=== PATIENT | male | born 1970 | race Caucasian/White ===

== ENCOUNTER 2019-09-19 06:07 | Inpatient (IN) | payer OTHER ==
[~2019-09-19 06:07] MED LIST: ceFAZolin 1,000 MG in SODIUM CHLORIDE 0.9% IRRIGATIO 1,000 ML IRRIGATION ONE; ceFAZolin 2,000 MG in SODIUM CHLORIDE 0.9% 30 ML IVPB ONE; ceFAZolin 3 GM in SODIUM CHLORIDE 0.9% 30 ML IVPB ONE
[2019-09-19] MEDS ORDERED: ASPIRIN 325 MG TAB PO STA (06:28)
[2019-09-19] MEDS ORDERED: SODIUM CHLORIDE 0.9% 1,000 ML in EMPTY BAG 1 BAG IV ONE (06:28)
[2019-09-19] MEDS ORDERED: ALPRAZolam 0.5 MG TAB PO PRN (06:28)
[2019-09-19] MEDS ORDERED: ATORVASTATIN 80 MG TAB PO STA (06:28)
[2019-09-19] MEDS ORDERED: ALPRAZolam 0.25 MG TAB PO PRN (06:28)
[2019-09-19] MEDS ORDERED: NITROGLYCERIN SL TABS 0.4 MG TAB SUBLINGUAL PRN (06:28)
[2019-09-19 06:53] LABS: Basophils % (A) 0 %; Eosinophils # (A) 0.1 k/uL (0-0.7); Eosinophils % (A) 2 %; HCT 40.9 % (39.0-53.0); HGB 13.7 gm/dL (13.0-17.5); Lymphocytes # (A) 1.2 k/uL (1.0-4.8); Lymphocytes % (A) 21 %; MCH 29.8 pg (25.0-35.0); MCHC 33.5 g/dL (31.0-37.0); Mean Platelet Volume 7.4; Monocytes # (A) 1.1 k/uL (0-1.0); Monocytes % (A) 19 %; Neutrophils # (A) 3.2 k/uL (1.3-7.7); Neutrophils % (A) 56 %; Platelet Count 341 k/uL (150-450); RBC 4.59 m/uL (4.30-5.90); WBC 5.8 k/uL (3.8-10.6)
[2019-09-19 07:00] LABS: African American GFR (CKD) >90 (>60 ml/min/1.73 sqM); Anion Gap 12 mmol/L; Blood Urea Nitrogen 16 mg/dL (9-20); Calcium 9.2 mg/dL (8.4-10.2); Carbon Dioxide 25 mmol/L (22-30); Chloride 102 mmol/L (98-107); Glucose 98 mg/dL (74-99); Non-African American GFR(CKD) >90 (>60 ml/min/1.73 sqM); Potassium 4.3 mmol/L (3.5-5.1); Sodium 139 mmol/L (137-145)
[2019-09-19] MEDS ORDERED: LIDOCAINE 1% INJ 10MG/ML (20 ML MDV) ONE ×3 (07:22→09:59)
[2019-09-19] MEDS ORDERED: fentaNYL (PF) 50 MCG/ML 2 ML AMP ONE (07:22)
[2019-09-19] MEDS ORDERED: fentaNYL (PF) 50 MCG/ML 2 ML AMP IV ONE (07:38)
[2019-09-19] MEDS ORDERED: MIDAZOLAM 2 MG/2 ML VIAL IV ONE (07:39)
[2019-09-19] MEDS ORDERED: BIVALIRUDIN BOLUS 250 MG/50 ML IV ONE (07:39)
[2019-09-19] MEDS ORDERED: LIDOCAINE 1% INJ 10MG/ML (20 ML MDV) SQ ONE (07:40)
[2019-09-19] MEDS ORDERED: PRASUGREL 10 MG TAB ONE (07:58)
[2019-09-19] MEDS ORDERED: BIVALIRUDIN 250 MG in SODIUM CHLORIDE 0.9% 50 ML IV ONE (08:00)
[2019-09-19] MEDS ORDERED: PRASUGREL 10 MG TAB PO ONE (08:01)
[2019-09-19] MEDS ORDERED: IOPAMIDOL-370 125ML BTL INJ ONE (08:18)
[2019-09-19] MEDS ORDERED: SODIUM CHLORIDE 0.9% IV ONE ×4 (08:35)
[2019-09-19] MEDS ORDERED: BIVALIRUDIN IV ONE ×4 (08:35)
[2019-09-19] MEDS ORDERED: IOPAMIDOL-370 100ML BTL INJ ONE ×3 (08:48→10:02)
[2019-09-19] MEDS ORDERED: NITROGLYCERIN-D5W PMX 50 MG in DEXTROSE/WATER 1 250ML.BAG IV ONE (09:43)
--- NOTE | 2019-09-19 09:45 | LTR ---
DATE OF SERVICE: 09/19/2019 RE: Christian Waterman Dear Dr. Hernandez; I performed cardiac catheterization on Christian Waterman, a detailed catheterization note is in place for your records. In brief, the cardiac catheterization revealed severe stenosis involving the LAD and patient will undergo angioplasty with stent placement of the same. Thank you for giving us the privilege to participate with this pleasant gentleman. Sincerely, MD JEB Michel / MICKEY: [id number] /
--- NOTE | 2019-09-19 09:45 | CC ---
CARDIAC CATHETERIZATION REPORT INDICATION: Unstable angina. PROCEDURE NOTE: After obtaining AN informed consent, left heart catheterization and coronary angiogram were performed via the right femoral artery using standard Laquita catheters. Patient tolerated the procedure well without any obvious immediate complications. Patient received moderate conscious sedation. Total sedation time was 16 minutes. FINDINGS: 1. HEMODYNAMICS: Left ventricular end-diastolic pressure is 12 mm. There is no significant gradient across the aortic valve. 2. LEFT VENTRICULOGRAM: Left ventriculogram was not performed. 3. ANGIOGRAPHIC DATA: LEFT MAIN CORONARY: Left main coronary artery is a normal-sized vessel and is free of stenosis. Divides into left anterior descending coronary artery and circumflex coronary artery. Circumflex coronary artery is a nondominant vessel and is free of significant disease. LAD is a large vessel that wraps around the apex of the heart, shows a focal 80%-90% stenosis in the midportion with the diagonal branch showing another 80% stenosis. Right coronary artery is a large dominant vessel that shows a 30%-40% atherosclerotic plaque in the proximal part. CONCLUSIONS: An 80% to 90% stenosis involving mid LAD that also involves the ostial part of the diagonal branch with an 80% to 90% stenosis involving the diagonal branch. PLAN: Patient will undergo angioplasty with stent placement of LAD and I discussed risks and benefits. He understands. MMODL / IJN: [id number] /
[2019-09-19] MEDS ORDERED: HEPARIN SODIUM 1,000 UN/ML (10ML VL) ONE (09:46)
[2019-09-19] MEDS ORDERED: PHENYLEPHRINE 10 MG/ML VIAL IV ONE (10:07)
[2019-09-19] MEDS ORDERED: MD COMMUNICATION TO PHARMACY 1 EACH MISC PO ONE ×4 (10:07)
[2019-09-19] MEDS ORDERED: METOPROLOL TARTRATE 12.5 MG TAB PO ONE (10:10)
[2019-09-19] MEDS ORDERED: ATORVASTATIN 10 MG TAB PO ONE (10:10)
[2019-09-19] MEDS ORDERED: CHLORHEXIDINE GLUCONATE 15 ML CUP MUCOUS MEM ONE (10:12)
[2019-09-19] MEDS ORDERED: MANNITOL 25% 12.5 GM/50 ML VIAL IV ONE ×2 (10:12)
[2019-09-19] MEDS ORDERED: HEPARIN SODIUM,PORCINE 5,000 UNIT in SODIUM CHLORIDE 0.9% 500 ML 500 ML IV ONE (10:12)
[2019-09-19] MEDS ORDERED: TRANEXAMIC ACID 2,000 MG in SODIUM CHLORIDE 0.9% 80 ML IV ONE (10:12)
[2019-09-19] MEDS ORDERED: SODIUM BICARB 8.4% 50 ML SYR (1 MEQ/ML) IV ONE (10:13)
[2019-09-19] MEDS ORDERED: NITROGLYCERIN-D5W PMX 25 MG/250 ML BTL IV ONE (10:13)
[2019-09-19] MEDS ORDERED: PROTAMINE SULFATE 250 MG in EMPTY BAG 1 BAG IV ONE (10:13)
[2019-09-19] MEDS ORDERED: HEPARIN SODIUM 1,000 UN/ML (10ML VL) IV ONE (10:13)
[2019-09-19] MEDS ORDERED: PAPAVERINE 360 MG in SODIUM CHLORIDE 0.9% 90 ML IV ONE (10:13)
[2019-09-19] MEDS ORDERED: PROTAMINE SULFATE 10 MG/ML 25 ML VIAL IV ONE (10:13)
[2019-09-19] MEDS ORDERED: NITROGLYCERIN-D5W PMX 50 MG in DEXTROSE/WATER 1 250ML.BAG IV SCH ×2 (10:13→16:04)
[2019-09-19] MEDS ORDERED: NOREPINEPHRINE 4 MG in SODIUM CHLORIDE 0.9% 250 ML IV SCH (10:14)
[2019-09-19] MEDS ORDERED: CLEVIDIPINE BUTYRATE 25 MG in EMPTY BAG 1 BAG IV SCH ×2 (10:14→16:04)
[2019-09-19] MEDS ORDERED: DEXTROSE 5% IN WATER 1,000 ML with POTASSIUM CHLORIDE 110 MEQ, MAGNESIUM SULFATE 16 MEQ... IV SCH ×5 (10:15)
[2019-09-19] MEDS ORDERED: CALCIUM CHLORIDE 100 MG/ML 10 ML SYRINGE IVP ONE (10:15)
[2019-09-19] MEDS ORDERED: ALBUMIN HUMAN 5% 500 ML in EMPTY BAG 1 BAG IVPB ONE ×5 (10:15→10:16)
[2019-09-19] MEDS ORDERED: PROPOFOL 1,000 MG in EMPTY BAG 1 BAG IV PRN (10:15)
[2019-09-19] MEDS ORDERED: DEXTROSE 5% IN WATER 1,000 ML with POTASSIUM CHLORIDE 25 MEQ, SODIUM CHLORIDE 2.5MEQ/ML... IV SCH ×6 (10:15)
[2019-09-19] MEDS ORDERED: MAGNESIUM SULFATE SYG 4.06 MEQ/ML SYRINGE IV ONE (10:15)
[2019-09-19] MEDS ORDERED: INSULIN REGULAR 100 UNIT in SODIUM CHLORIDE 0.9% 100 ML IV SCH ×2 (10:15→16:04)
[2019-09-19] MEDS ORDERED: PHENYLEPHRINE 40 MG in SODIUM CHLORIDE 0.9% 250 ML IV ONE (10:15)
[2019-09-19] MEDS ORDERED: ALBUMIN HUMAN 25% 50 ML in EMPTY BAG 1 BAG IVPB ONE (10:16)
[2019-09-19] MEDS ORDERED: CALCIUM CHLORIDE 100 MG/ML 10 ML SYRINGE ONE (10:56)
[2019-09-19] MEDS ORDERED: SUCCINYLCHOLINE CHLORIDE 100 MG/5 ML SYR IV ONE (10:56)
[2019-09-19] MEDS ORDERED: PROTAMINE SULFATE 10 MG/ML 5 ML VIAL IV ONE (10:56)
[2019-09-19] MEDS ORDERED: MAGNESIUM SULFATE 4 MEQ/ML 10ML VIAL ONE (10:56)
[2019-09-19] MEDS ORDERED: HEPARIN SODIUM,PORCINE 5,000 UNIT/ML 1 ML VIAL ONE (10:56)
[2019-09-19] MEDS ORDERED: ELECTROLYTE-R (PH 7.4) 1,000 ML IV.SOLN IV ONE (10:56)
[2019-09-19] MEDS ORDERED: fentaNYL (PF) 50 MCG/ML 50 ML VIAL ONE (10:56)
[2019-09-19] MEDS ORDERED: NITROGLYCERIN-D5W PMX 50 MG/250 ML BOTTLE IV ONE (10:56)
[2019-09-19] MEDS ORDERED: MIDAZOLAM 2 MG/2 ML VIAL ONE (10:56)
[2019-09-19] MEDS ORDERED: PROPOFOL 10 MG/ML 20 ML VIAL IV ONE (10:56)
[2019-09-19] MEDS ORDERED: ALBUMIN HUMAN 5% (25gm) 500 ML VIAL IVPB ONE (10:56)
[2019-09-19] MEDS ORDERED: VECURONIUM 10 MG VIAL IV ONE (10:56)
[2019-09-19] MEDS ORDERED: HEPARIN SODIUM,PORCINE 10,000 UNIT/ML 1 ML VIAL ONE (10:56)
[2019-09-19 11:00] LABS: Prothrombin Time 19.2 sec (9.0-12.0)
[2019-09-19 11:03] LABS: Basophils % (A) 0 %; Eosinophils % (A) 1 %; HCT 40.9 % (39.0-53.0); HGB 13.6 gm/dL (13.0-17.5); Lymphocytes # (A) 1.5 k/uL (1.0-4.8); Lymphocytes % (A) 24 %; MCHC 33.3 g/dL (31.0-37.0); Monocytes % (A) 16 %; Neutrophils # (A) 3.6 k/uL (1.3-7.7); Neutrophils % (A) 57 %; Platelet Count 343 k/uL (150-450); RBC 4.54 m/uL (4.30-5.90); RDW 12.1 % (11.5-15.5); WBC 6.3 k/uL (3.8-10.6)
[2019-09-19 11:08] LABS: ALT 21 U/L (4-49); AST 24 U/L (17-59); African American GFR (CKD) >90 (>60 ml/min/1.73 sqM); Albumin 4.3 g/dL (3.5-5.0); Alkaline Phosphatase 63 U/L (38-126); Anion Gap 10 mmol/L; Blood Urea Nitrogen 15 mg/dL (9-20); Carbon Dioxide 27 mmol/L (22-30); Chloride 99 mmol/L (98-107); Cholesterol 139 mg/dL (<200); Glucose 91 mg/dL (74-99); HDL Cholesterol 32 mg/dL (40-60); LDL Cholesterol,Calculated 79 mg/dL (0-99); Non-African American GFR(CKD) 88 (>60 ml/min/1.73 sqM); Potassium 4.9 mmol/L (3.5-5.1); Sodium 136 mmol/L (137-145); Total Bilirubin 0.6 mg/dL (0.2-1.3); Total Protein 7.5 g/dL (6.3-8.2); Triglycerides 141 mg/dL (<150)
[2019-09-19 11:27] LABS: Partial Thromboplastin Time 99.8 sec (22.0-30.0)
[2019-09-19 11:49] LABS: ABG Base Excess 0.8 mmol/L; ABG Glucose Whole Blood 98 mg/dL (75-99); ABG HCO3 25 mmol/L (21-25); ABG Hematocrit 38 % (34.0-46.0); ABG Ionized Calcium 4.6 mg/dL (4.5-5.3); ABG Lactic Acid Whole Blood 1.6 mmol/L (0.5-1.6); ABG PCO2 40 mmHg (35-45); ABG PH 7.42 (7.35-7.45); ABG Potassium Whole Blood 4.2 mmol/L (3.4-4.5); ABG Sodium Whole Blood 138 mmol/L (135-146); ABG TCO2 27 mmol/L (19-24)
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
[2019-09-19 13:40] LABS: ABG Base Excess -0.6 mmol/L; ABG Glucose Whole Blood 102 mg/dL (75-99); ABG HCO3 25 mmol/L (21-25); ABG Hematocrit 32 % (34.0-46.0); ABG Ionized Calcium 4.4 mg/dL (4.5-5.3); ABG Lactic Acid Whole Blood 1.1 mmol/L (0.5-1.6); ABG PCO2 43 mmHg (35-45); ABG PH 7.37 (7.35-7.45); ABG PO2 143 mmHg (83-108); ABG Potassium Whole Blood 4.2 mmol/L (3.4-4.5); ABG Sodium Whole Blood 139 mmol/L (135-146); ABG TCO2 26 mmol/L (19-24)
[2019-09-19 15:04] LABS: ABG Base Excess -2.7 mmol/L; ABG Glucose Whole Blood 114 mg/dL (75-99); ABG HCO3 23 mmol/L (21-25); ABG Hematocrit 28 % (34.0-46.0); ABG Ionized Calcium 4.8 mg/dL (4.5-5.3); ABG Lactic Acid Whole Blood 1.5 mmol/L (0.5-1.6); ABG PCO2 39 mmHg (35-45); ABG PH 7.36 (7.35-7.45); ABG PO2 151 mmHg (83-108); ABG Potassium Whole Blood 3.9 mmol/L (3.4-4.5); ABG Sodium Whole Blood 139 mmol/L (135-146); ABG TCO2 24 mmol/L (19-24)
[2019-09-19 15:48] LABS: ABG PO2 >420 mmHg (83-108)
[2019-09-19] MEDS ORDERED: CALCIUM GLUCONATE 2 GM in SODIUM CHLORIDE 0.9% 100 ML IVPB PRN (16:04)
[2019-09-19] MEDS ORDERED: ONDANSETRON 4 MG/2 ML VIAL IVP PRN (16:04)
[2019-09-19] MEDS ORDERED: MORPHINE SULFATE 2 MG/ML SYRINGE IVP PRN (16:04)
[2019-09-19] MEDS ORDERED: Phosphorus Replacement Protoco 1 EACH MISC MISCELLANE PRN (16:04)
[2019-09-19] MEDS ORDERED: METOCLOPRAMIDE 5 MG/ML 2 ML VIAL IVP PRN (16:04)
[2019-09-19] MEDS ORDERED: Potassium Replacement Protocol 1 EACH MISC MISCELLANE PRN (16:04)
[2019-09-19] MEDS ORDERED: IPRATROPIUM-ALBUTEROL 3 ML NEB INHALATION PRN (16:04)
[2019-09-19] MEDS ORDERED: AMIODARONE 360 MG in DEXTROSE 5% IN WATER 200 ML IV PRN ×2 (16:04)
[2019-09-19] MEDS ORDERED: Magnesium Replacement Protocol 1 EACH MISC MISCELLANE PRN (16:04)
[2019-09-19] MEDS ORDERED: AMIODARONE 300 MG in DEXTROSE 5% IN WATER 250 ML IV PRN ×2 (16:04)
[2019-09-19] MEDS ORDERED: BENZOCAINE/MENTHOL LOZENG 1 EACH LOZENGE MUCOUS MEM PRN (16:04)
[2019-09-19] MEDS ORDERED: DEXTROSE 5% IN WATER 100 ML with AMIODARONE 150 MG IV PRN (16:04)
[2019-09-19] MEDS ORDERED: THIAMINE 100 MG/ML 2 ML VIAL IM STA (16:14)
[2019-09-19] MEDS ORDERED: LORazepam 2 MG/ML INJ IV PRN ×4 (16:14)
[2019-09-19] MEDS: PROPOFOL 1,000 MG in EMPTY BAG 1 BAG IV SCH ×2 (16:25→18:24)
[2019-09-19] MEDS: ALBUMIN HUMAN 5% 250 ML in EMPTY BAG 1 BAG IVPB PRN ×3 (16:50→21:32)
[2019-09-19 16:51] LABS: ABG Base Excess -3.2 mmol/L; ABG HCO3 23 mmol/L (21-25); ABG PCO2 45 mmHg (35-45); ABG PH 7.32 (7.35-7.45); ABG PO2 392 mmHg (83-108); ABG TCO2 24 mmol/L (19-24); Allen Test Performed? Yes
[2019-09-19 16:53] LABS: Glucose,Whole Blood 139 mg/dL (75-99)
--- NOTE | 2019-09-19 16:56 | XR ---
"EXAMINATION TYPE: XR chest 1V portable DATE OF EXAM: 09/19/2019 COMPARISON: NONE HISTORY: Postop cardiac surgery TECHNIQUE: Single frontal view of the chest is obtained. FINDINGS: Patient is post median sternotomy and rotated. Endotracheal tube, NG tube, right jugular c entral venous catheter, median sternal drains, left chest tube are in place. The distal tip of the [place]-Tate catheter is coiled within the right ventricle. Exam is expiratory and rotated. There is no ev ident pneumothorax. Heart size may be accentuated by technique. Suspect a marker overlying the thorac ic aortic, possible intra-aortic balloon pump or atrial appendage clipping, correlate. Subsegmental b asilar atelectatic changes are present. IMPRESSION: Postprocedural changes as described, results relayed to the voicemail of Attila sandoval onically A Yellow level critical message alert has been initiated for Vandana Alonzo via the [facility] | Cri tical Results System on 09/19/2019 4:53 PM. This message alert has been sent to Vandana Alonzo via the pr eferences provided by the clinician for the receipt of Radiology Critical Findings. Message ID [id number]."
[2019-09-19] MEDS: SODIUM CHLORIDE 0.9% 1,000 ML IV SCH (17:00)
[2019-09-19] MEDS: IPRATROPIUM-ALBUTEROL 3 ML NEB INHALATION SCH ×3 (17:06→19:02)
[2019-09-19 17:09] LABS: Basophils % (A) 0 %; Eosinophils # (A) 0.1 k/uL (0-0.7); Eosinophils % (A) 0 %; HCT 30.3 % (39.0-53.0); Lymphocytes % (A) 6 %; MCH 30.8 pg (25.0-35.0); MCHC 34.4 g/dL (31.0-37.0); MCV 89.5 fL (80.0-100.0); Mean Platelet Volume 7.3; Monocytes # (A) 2.3 k/uL (0-1.0); Monocytes % (A) 14 %; Neutrophils # (A) 12.8 k/uL (1.3-7.7); Neutrophils % (A) 79 %; Platelet Count 254 k/uL (150-450); RBC 3.39 m/uL (4.30-5.90); WBC 16.3 k/uL (3.8-10.6)
[2019-09-19 17:10] LABS: Hepatitis A Antibody IgM Non-Reactive (Non-Reactive); Hepatitis B Core IgM Non-Reactive (Non-Reactive); Hepatitis B Surface Antigen Non-Reactive (Non-Reactive); Hepatitis C IgG Antibody Non-Reactive (Non-Reactive)
[2019-09-19 17:13] LABS: HGB 10.4 gm/dL (13.0-17.5)
[2019-09-19 17:17] LABS: Ionized Calcium 4.9 mg/dL (4.5-5.3)
[2019-09-19 17:20] LABS: Glucose,Whole Blood 140 mg/dL (75-99)
[2019-09-19 17:21] LABS: INR 1.3 (<1.2); Partial Thromboplastin Time 29.2 sec (22.0-30.0); Prothrombin Time 12.8 sec (9.0-12.0)
[2019-09-19 17:25] LABS: ALT 12 U/L (4-49); AST 24 U/L (17-59); African American GFR (CKD) >90 (>60 ml/min/1.73 sqM); Albumin 3.3 g/dL (3.5-5.0); Alkaline Phosphatase 22 U/L (38-126); Anion Gap 8 mmol/L; Blood Urea Nitrogen 13 mg/dL (9-20); Carbon Dioxide 22 mmol/L (22-30); Chloride 106 mmol/L (98-107); Glucose 124 mg/dL (74-99); Magnesium 2.2 mg/dL (1.6-2.3); Non-African American GFR(CKD) >90 (>60 ml/min/1.73 sqM); Sodium 136 mmol/L (137-145); Total Bilirubin 0.9 mg/dL (0.2-1.3); Total Protein 5.5 g/dL (6.3-8.2)
[2019-09-19 17:26] LABS: Potassium 4.6 mmol/L (3.5-5.1)
[2019-09-19 18:15] LABS: Glucose,Whole Blood 141 mg/dL (75-99)
[2019-09-19 18:15] LABS: Hemoglobin A1C 5.7 % (4.0-6.0)
[2019-09-19] MEDS: ACETAMINOPHEN IV (For NPO) 1,000 MG in EMPTY BAG 1 BAG IVPB SCH (18:31)
[2019-09-19 19:11] LABS: Glucose,Whole Blood 137 mg/dL (75-99)
[2019-09-19] MEDS: THIAMINE 100 MG TAB PO SCH (19:38)
[2019-09-19 20:26] LABS: Glucose,Whole Blood 136 mg/dL (75-99)
[2019-09-19] MEDS: DEXMEDETOMIDINE/0.9% NACL(PMX) 400 MCG in EMPTY BAG 1 BAG IV SCH (20:53)
[2019-09-19] MEDS: MUPIROCIN 2% OINT 22 GM TUBE NASAL SCH (21:04)
[2019-09-19 21:12] LABS: Appearance,Urine Clear (Clear); Bilirubin,Urine Negative (Negative); Blood,Urine Small (Negative); Color,Urine Yellow; Glucose,Urine (UA) Negative (Negative); Hyaline Casts,Urine 1 /lpf (0-2); Ketones,Urine 1+ (Negative); Leukocyte Esterase,Urine Negative (Negative); Mucus,Urine Occasional /hpf; Nitrite,Urine Negative (Negative); Protein,Urine Negative (Negative); RBC,Urine 7 /hpf (0-5); Squamous Epithelial Cell,Urine <1 /hpf (0-4); Urobilinogen,Urine <2.0 mg/dL (<2.0); WBC,Urine 1 /hpf (0-5)
[2019-09-19 21:13] LABS: Specific Gravity,Urine >1.050 (1.001-1.035)
[2019-09-19 21:31] LABS: Glucose,Whole Blood 149 mg/dL (75-99)
[2019-09-19 21:56] LABS: Glucose,Whole Blood 140 mg/dL (75-99)
[2019-09-19 22:32] LABS: HCT 26.7 % (39.0-53.0); MCH 30.2 pg (25.0-35.0); MCHC 33.3 g/dL (31.0-37.0); MCV 90.5 fL (80.0-100.0); Mean Platelet Volume 7.5; Platelet Count 185 k/uL (150-450); RBC 2.95 m/uL (4.30-5.90); RDW 12.2 % (11.5-15.5); WBC 15.4 k/uL (3.8-10.6)
[2019-09-19 22:38] LABS: HGB 8.9 gm/dL (13.0-17.5)
[2019-09-19 22:51] LABS: Lymphocytes # (M) 1.23 k/uL (1.0-4.8); Monocytes # (M) 1.69 k/uL (0-1.0); Neutrophils # (M) 12.47 k/uL (1.3-7.7); Neutrophils % (M) 81 %; Nucleated Red Blood Cells 0 /100 WBC (0-0); Total Cells Counted 100
[2019-09-19 23:01] LABS: Glucose,Whole Blood 133 mg/dL (75-99)
[2019-09-19] MEDS ORDERED: ALBUMIN HUMAN 5% 250 ML in EMPTY BAG 1 BAG IVPB STA (23:13)
[2019-09-19] MEDS: NOREPINEPHRINE 4 MG in SODIUM CHLORIDE 0.9% 250 ML IV SCH (23:30)
[2019-09-20 00:02] LABS: Glucose,Whole Blood 129 mg/dL (75-99)
[2019-09-20] MEDS: ACETAMINOPHEN IV (For NPO) 1,000 MG in EMPTY BAG 1 BAG IVPB SCH (00:10)
[2019-09-20] MEDS: HEPARIN SODIUM,PORCINE 5,000 UNIT/ML 1 ML VIAL SQ SCH ×4 (00:13→23:18)
[2019-09-20] MEDS: DEXMEDETOMIDINE/0.9% NACL(PMX) 400 MCG in EMPTY BAG 1 BAG IV SCH ×4 (00:37→14:45)
[2019-09-20 01:06] LABS: Glucose,Whole Blood 139 mg/dL (75-99)
[2019-09-20 02:04] LABS: Glucose,Whole Blood 142 mg/dL (75-99)
[2019-09-20 02:55] LABS: Glucose,Whole Blood 137 mg/dL (75-99)
[2019-09-20] MEDS ORDERED: HYDROcodone/APAP 5-325MG 1 EACH TAB PO PRN (03:51)
[2019-09-20 04:07] LABS: Glucose,Whole Blood 127 mg/dL (75-99)
[2019-09-20 04:12] LABS: ABG Base Excess -3.2 mmol/L; ABG HCO3 22 mmol/L (21-25); ABG Oxygen Saturation 99.5 % (94-97); ABG PCO2 38 mmHg (35-45); ABG PH 7.37 (7.35-7.45); ABG PO2 162 mmHg (83-108); ABG TCO2 23 mmol/L (19-24)
[2019-09-20 04:16] LABS: HGB 8.5 gm/dL (13.0-17.5); MCH 30.8 pg (25.0-35.0); MCHC 34.2 g/dL (31.0-37.0); MCV 90.2 fL (80.0-100.0); Mean Platelet Volume 7.5; Platelet Count 216 k/uL (150-450); RBC 2.77 m/uL (4.30-5.90); RDW 12.4 % (11.5-15.5); WBC 17.2 k/uL (3.8-10.6)
[2019-09-20 04:21] LABS: Ionized Calcium 4.6 mg/dL (4.5-5.3)
[2019-09-20 04:23] LABS: Allen Test Performed? no
[2019-09-20 04:28] LABS: ALT 12 U/L (4-49); AST 25 U/L (17-59); African American GFR (CKD) >90 (>60 ml/min/1.73 sqM); Albumin 3.7 g/dL (3.5-5.0); Alkaline Phosphatase 23 U/L (38-126); Anion Gap 8 mmol/L; Blood Urea Nitrogen 14 mg/dL (9-20); Calcium 7.8 mg/dL (8.4-10.2); Carbon Dioxide 22 mmol/L (22-30); Chloride 106 mmol/L (98-107); Glucose 118 mg/dL (74-99); Magnesium 2.1 mg/dL (1.6-2.3); Non-African American GFR(CKD) >90 (>60 ml/min/1.73 sqM); Potassium 4.4 mmol/L (3.5-5.1); Sodium 136 mmol/L (137-145); Total Protein 5.5 g/dL (6.3-8.2)
[2019-09-20 04:58] LABS: Lymphocytes # (M) 1.89 k/uL (1.0-4.8); Monocytes # (M) 2.92 k/uL (0-1.0); Neutrophils # (M) 12.38 k/uL (1.3-7.7); Neutrophils % (M) 72 %; Nucleated Red Blood Cells 0 /100 WBC (0-0); Total Cells Counted 100
[2019-09-20] MEDS ORDERED: ceFAZolin 3 GM in SODIUM CHLORIDE 0.9% 30 ML IVPB ONE (05:00)
[2019-09-20] MEDS ORDERED: PHENYLEPHRINE 40 MG in SODIUM CHLORIDE 0.9% 250 ML IV ONE (05:00)
[2019-09-20] MEDS ORDERED: HEPARIN SODIUM,PORCINE 5,000 UNIT in SODIUM CHLORIDE 0.9% 500 ML 500 ML IV ONE (05:00)
[2019-09-20] MEDS ORDERED: HEPARIN SODIUM 1,000 UN/ML (10ML VL) IV ONE (05:00)
[2019-09-20] MEDS ORDERED: ceFAZolin 1,000 MG in SODIUM CHLORIDE 0.9% IRRIGATIO 1,000 ML IRRIGATION ONE (05:00)
[2019-09-20] MEDS ORDERED: PAPAVERINE 360 MG in SODIUM CHLORIDE 0.9% 90 ML IV ONE (05:00)
[2019-09-20] MEDS ORDERED: MAGNESIUM SULFATE MG 500 MG/ML IV ONE (05:00)
[2019-09-20] MEDS ORDERED: TRANEXAMIC ACID 2,000 MG in SODIUM CHLORIDE 0.9% 80 ML IV ONE (05:00)
[2019-09-20] MEDS ORDERED: ceFAZolin 2,000 MG in SODIUM CHLORIDE 0.9% 30 ML IVPB ONE (05:00)
[2019-09-20] MEDS ORDERED: NITROGLYCERIN-D5W PMX 25 MG/250 ML BTL IV ONE (05:00)
[2019-09-20] MEDS ORDERED: DEXTROSE 5% IN WATER 1,000 ML with POTASSIUM CHLORIDE 25 MEQ, SODIUM CHLORIDE 2.5MEQ/ML... IRRIGATION ONE ×6 (05:00)
[2019-09-20] MEDS ORDERED: PROTAMINE SULFATE 250 MG in EMPTY BAG 1 BAG IV ONE (05:00)
[2019-09-20] MEDS ORDERED: DEXTROSE 5% IN WATER 1,000 ML with POTASSIUM CHLORIDE 110 MEQ, MAGNESIUM SULFATE 16 MEQ... IV ONE ×5 (05:00)
[2019-09-20 05:03] LABS: Glucose,Whole Blood 122 mg/dL (75-99)
[2019-09-20 06:03] LABS: Glucose,Whole Blood 127 mg/dL (75-99)
[2019-09-20 06:23] LABS: INR 1.2 (<1.2); Partial Thromboplastin Time 26.4 sec (22.0-30.0); Prothrombin Time 11.7 sec (9.0-12.0)
[2019-09-20] MEDS: IPRATROPIUM-ALBUTEROL 3 ML NEB INHALATION SCH ×4 (06:59→20:34)
[2019-09-20 07:15] LABS: Glucose,Whole Blood 133 mg/dL (75-99)
[2019-09-20 08:07] LABS: Glucose,Whole Blood 126 mg/dL (75-99)
[2019-09-20] MEDS: NOREPINEPHRINE 4 MG in SODIUM CHLORIDE 0.9% 250 ML IV SCH ×2 (08:31→23:14)
--- NOTE | 2019-09-20 08:44 | XR ---
EXAMINATION TYPE: XR chest 1V portable DATE OF EXAM: 09/20/2019 COMPARISON: 09/19/2019 HISTORY: Status post cardiac surgery. TECHNIQUE: Single frontal view of the chest is obtained. FINDINGS: [place]-Tate catheter appears to have been repositioned terminating in the proximal pulmonary outflow tract. Endotracheal tube and enteric tube are similar in position as well as the left thorac ostomy tube. Cardiomediastinal silhouette is again enlarged and rotated with post CABG change. Obscur ation of the retrocardiac airspace is seen with low lung volumes. IMPRESSION: Repositioned [place]-Tate catheter now appearing to terminate in the proximal pulmonary out flow tract. Persistent retrocardiac opacity that may represent a pleural effusion or atelectasis. Oth er stable lines and tubes.
[2019-09-20] MEDS ORDERED: MAGNESIUM HYDROXIDE 2,400 MG/10 ML CUP PO PRN (09:00)
[2019-09-20] MEDS ORDERED: BISACODYL 10 MG SUPP RECTAL PRN (09:00)
--- NOTE | 2019-09-20 09:05 | P.PN ---
Subjective Progress Note Date: 09/20/19 Principal diagnosis: Coronary artery disease, unstable angina, preoperative placement of intra-aortic balloon pump. Previous medical history of hypertension, hyperlipidemia, pulmo nary embolus on no anticoagulation, daily EtOH use, marijuana use, obesity, and family history of premature coronary artery disease. POD #1 emergency off-pump coronary artery bypass grafting 1 with left internal mammary artery to the left anterior descending artery. Intraoperative transesophageal echocardiogram. Intraoperative graft flow measurements using the [employer] system. Postoperative acute blood loss anemia, expected outcome of surgery. Postoperative hypotension, expected outcome Patient's currently laying in the intensive care unit in no acute distress, still sedated on mechanical ventilation. Remains in normal sinus rhythm. Intra-aortic balloon pump in place with 1:1 augmentation, balloon pump site has been oozy all night. Patient was hypotensive last night requiring initiation of IV Levophed, currently more stable. [place]/Cordis, chest tubes, arterial line, right femoral artery heart catheterization sheath all remained intact. Currently he is sedated with Precedex, he will open his eyes and is able to move all extremities, does follow commands but did have a couple of episodes last night of agitation. Objective - Vital Signs Vital signs: Vital Signs Temp 96.8 F L 09/20/19 08:00 Pulse 67 09/20/19 08:00 Resp 20 09/20/19 08:00 BP 132/83 09/19/19 06:22 Pulse Ox 99 09/20/19 08:00 Intake & Output 09/19/19 09/20/19 09/20/19 18:59 06:59 18:59 Intake Total 634.620 4464.717 217.9 Output Total 3351 854 125 Balance -2654.229 1788.717 92.9 Weight 126.7 kg 134.2 kg Intake: IV 194 2300 190 ACETAMINOPHEN IV (For NPO 100 ) 1,000 mg In Empty Bag 1 bag @ 400 mls/hr IVPB Q6HR [facility] Rx#:[id number] Albumin 5% 750 Albumin Human 5% 250 ml 250 In Empty Bag 1 bag @ 250 mls/hr IVPB ONCE [facility] Rx#: [id number] CO/CI Injectate 60 370 60 IABP Pressure Bag 6 36 6 Normal Saline Pressure 24 144 24 Bag Sodium Chloride 0.9% 1, 550 100 000 ml @ 50 mls/hr IV . Q20H [facility] Rx#:[id number] ceFAZolin 2 gm In Sodium 100 Chloride 0.9% 50 ml @ 100 mls/hr IVPB Q8H [facility] Rx#: [id number] Intake, IV Titration 502.771 342.717 27.9 Amount ACETAMINOPHEN IV (For NPO 100 ) 1,000 mg In Empty Bag 1 bag @ 400 mls/hr IVPB Q6HR [facility] Rx#:[id number] Albumin Human 5% 250 ml 250 In Empty Bag 1 bag @ 250 mls/hr IVPB Q1HR [facility]N Rx#: [id number] Dexmedetomidine/0.9% NaCl 169.201 (Pmx) 400 mcg In Empty Bag 1 bag @ Titrate IV . Q0M [facility] Rx#:[id number] Insulin Regular 100 unit 22.641 In Sodium Chloride 0.9% 100 ml @ Per Protocol IV .Q0M [facility] Rx#:[id number] Nitroglycerin-D5w Pmx 50 16.05 27.9 mg In Dextrose/Water 1 250ml.bag @ 5 MCG/MIN 1.5 mls/hr IV .Q24H [facility] Rx#: [id number] Propofol 1,000 mg In 52.771 84.825 Empty Bag 1 bag @ Titrate IV .Q0M [facility] Rx#: [id number] Sodium Chloride 0.9% 1, 100 50 000 ml @ 50 mls/hr IV . Q20H [facility] Rx#:[id number] Output: Chest Tube Drainage [address] X 2 206 130 40 Urine 920 614 85 Estimated Blood Loss 1999 Other: Voiding Method Indwelling Catheter Indwelling Catheter ABP, PAP, CO, CI - Last Documented Arterial Blood Pressure 122/64 Pulmonary Artery Pressure 32/17 Cardiac Output 5.2 Cardiac Index 2.1 - Constitutional General appearance: Present: no acute distress, obese - Respiratory Details: Lungs sounds diminished bilaterally. Respirations even, nonlabored. Currently on mechanical ventilation, assist control mode, FiO2 50%, tidal volume 500, respiratory rate 20, PEEP 10. ABGs this morning on those settings 7.37/38/162/22/90/-3.2. 8.0 ET tube present, 23 at the lip. Mediastinal chest tube present to continuous wall suction, 130 milliliters serosanguineous drainage overnight, 400 ml since surgery, no air leak present. Left pleural chest tube to continuous wall suction, 100 ml serosanguineous drainage overnight, 400 ml since surgery, no air leak present. - Cardiovascular Details: S1, S2 present. Regular rate and rhythm, sinus rhythm on telemetry. Sternum stable. Intra-aortic balloon pump present to left femoral artery, 1:1 augment ation. Right internal jugular [place]/Cordis, right radial arterial line present. Last CO/CI 5.4/2.2 on low-dose IV Levophed. Right femoral artery heart catheterization sheath in place. Trace lower extremity edema present. Palpable peripheral pulses bilaterally. No calf pain or tenderness noted. Heart hugger, antiembolism stockings present. - Gastrointestinal Gastrointestinal Comment(s): Abdomen soft, nontender, nondistended. Hypoactive bowel sounds present 4 quadrants. OG tube present to low intermittent suction with minimal output. - Genitourinary Genitourinary Comment(s): Roberts present draining clear, yellow urine. Output 25-30 mL per hour earlier in the evening, increasing to 50-80 mL per hour this morning - Integumentary Integumentary Comment(s): Skin is warm and dry with evidence of good perfusion. Anterior chest incision well approximated and covered with dry intact dressing. Left femoral artery balloon pump site dressing with serous drainage. - Neurologic Neurologic: Present: CNII-XII intact - Psychiatric Psychiatric Comment(s): Currently sedated with Precedex. Does open his eyes, follows commands, able to move all extremities - Allied health notes Allied health notes reviewed: nursing - Labs CBC & Chem 7: 09/20/19 04:04 09/20/19 04:04 Labs: Abnormal Lab Results - Last 24 Hours (Table) 09/19/19 09/19/19 09/19/19 Range/Units 10:10 10:10 10:10 WBC (3.8-10.6) k/uL RBC (4.30-5.90) m/uL Hgb (13.0-17.5) gm/dL Hct (39.0-53.0) % Neutrophils # (1.3-7.7) k/uL Neutrophils # (Manual) (1.3-7.7) k/uL Monocytes # (0-1.0) k/uL Monocytes # (Manual) (0-1.0) k/uL PT 19.2 H (9.0-12.0) sec INR 2.0 H (<1.2) APTT 99.8 H (22.0-30.0) sec ABG pH (7.35-7.45) ABG pO2 (83-108) mmHg ABG Total CO2 (19-24) mmol/L ABG O2 Saturation (94-97) % ABG Hematocrit (34.0-46.0) % ABG Ionized Calcium (4.5-5.3) mg/dL ABG Glucose (75-99) mg/dL Hemoglobin (13.0-17.5) gm/dL Sodium 136 L (137-145) mmol/L Glucose (74-99) mg/dL POC Glucose (mg/dL) (75-99) mg/dL Calcium (8.4-10.2) mg/dL Alkaline Phosphatase (38-126) U/L Total Protein (6.3-8.2) g/dL Albumin (3.5-5.0) g/dL HDL Cholesterol 32 L (40-60) mg/dL Arterial Blood Glucose (75-99) mg/dL Ur Specific [place] (1.001-1.035) Urine Ketones (Negative) Urine Blood (Negative) Urine RBC (0-5) /hpf Urine Mucus (None) /hpf Crossmatch See Detail 09/19/19 09/19/19 09/19/19 Range/Units 11:50 13:41 15:05 WBC (3.8-10.6) k/uL RBC (4.30-5.90) m/uL Hgb (13.0-17.5) gm/dL Hct (39.0-53.0) % Neutrophils # (1.3-7.7) k/uL Neutrophils # (Manual) (1.3-7.7) k/uL Monocytes # (0-1.0) k/uL Monocytes # (Manual) (0-1.0) k/uL PT (9.0-12.0) sec INR (<1.2) APTT (22.0-30.0) sec ABG pH (7.35-7.45) ABG pO2 >420 H 143 H 151 H (83-108) mmHg ABG Total CO2 27 H 26 H (19-24) mmol/L ABG O2 Saturation 100.0 H 99.0 H 99.0 H (94-97) % ABG Hematocrit 32 L 28 L (34.0-46.0) % ABG Ionized Calcium 4.4 L (4.5-5.3) mg/dL ABG Glucose 102 H 114 H (75-99) mg/dL Hemoglobin 12.2 L 10.3 L 9.1 L (13.0-17.5) gm/dL Sodium (137-145) mmol/L Glucose (74-99) mg/dL POC Glucose (mg/dL) (75-99) mg/dL Calcium (8.4-10.2) mg/dL Alkaline Phosphatase (38-126) U/L Total Protein (6.3-8.2) g/dL Albumin (3.5-5.0) g/dL HDL Cholesterol (40-60) mg/dL Arterial Blood Glucose 102 H 114 H (75-99) mg/dL Ur Specific [place] (1.001-1.035) Urine Ketones (Negative) Urine Blood (Negative) Urine RBC (0-5) /hpf Urine Mucus (None) /hpf Crossmatch 09/19/19 09/19/19 09/19/19 Range/Units 16:47 16:50 16:50 WBC 16.3 H (3.8-10.6) k/uL RBC 3.39 L (4.30-5.90) m/uL Hgb 10.4 L D (13.0-17.5) gm/dL Hct 30.3 L (39.0-53.0) % Neutrophils # 12.8 H (1.3-7.7) k/uL Neutrophils # (Manual) (1.3-7.7) k/uL Monocytes # 2.3 H (0-1.0) k/uL Monocytes # (Manual) (0-1.0) k/uL PT 12.8 H (9.0-12.0) sec INR 1.3 H (<1.2) APTT (22.0-30.0) sec ABG pH 7.32 L (7.35-7.45) ABG pO2 392 H (83-108) mmHg ABG Total CO2 (19-24) mmol/L ABG O2 Saturation 100.0 H (94-97) % ABG Hematocrit (34.0-46.0) % ABG Ionized Calcium (4.5-5.3) mg/dL ABG Glucose (75-99) mg/dL Hemoglobin (13.0-17.5) gm/dL Sodium (137-145) mmol/L Glucose (74-99) mg/dL POC Glucose (mg/dL) (75-99) mg/dL Calcium (8.4-10.2) mg/dL Alkaline Phosphatase (38-126) U/L Total Protein (6.3-8.2) g/dL Albumin (3.5-5.0) g/dL HDL Cholesterol (40-60) mg/dL Arterial Blood Glucose (75-99) mg/dL Ur Specific [place] (1.001-1.035) Urine Ketones (Negative) Urine Blood (Negative) Urine RBC (0-5) /hpf Urine Mucus (None) /hpf Crossmatch 09/19/19 09/19/19 09/19/19 Range/Units 16:50 16:52 17:14 WBC (3.8-10.6) k/uL RBC (4.30-5.90) m/uL Hgb (13.0-17.5) gm/dL Hct (39.0-53.0) % Neutrophils # (1.3-7.7) k/uL Neutrophils # (Manual) (1.3-7.7) k/uL Monocytes # (0-1.0) k/uL Monocytes # (Manual) (0-1.0) k/uL PT (9.0-12.0) sec INR (<1.2) APTT (22.0-30.0) sec ABG pH (7.35-7.45) ABG pO2 (83-108) mmHg ABG Total CO2 (19-24) mmol/L ABG O2 Saturation (94-97) % ABG Hematocrit (34.0-46.0) % ABG Ionized Calcium (4.5-5.3) mg/dL ABG Glucose (75-99) mg/dL Hemoglobin (13.0-17.5) gm/dL Sodium 136 L (137-145) mmol/L Glucose 124 H (74-99) mg/dL POC Glucose (mg/dL) 139 H 140 H (75-99) mg/dL Calcium 8.0 L (8.4-10.2) mg/dL Alkaline Phosphatase 22 L (38-126) U/L Total Protein 5.5 L (6.3-8.2) g/dL Albumin 3.3 L (3.5-5.0) g/dL HDL Cholesterol (40-60) mg/dL Arterial Blood Glucose (75-99) mg/dL Ur Specific [place] (1.001-1.035) Urine Ketones (Negative) Urine Blood (Negative) Urine RBC (0-5) /hpf Urine Mucus (None) /hpf Crossmatch 09/19/19 09/19/19 09/19/19 Range/Units 18:14 19:09 20:24 WBC (3.8-10.6) k/uL RBC (4.30-5.90) m/uL Hgb (13.0-17.5) gm/dL Hct (39.0-53.0) % Neutrophils # (1.3-7.7) k/uL Neutrophils # (Manual) (1.3-7.7) k/uL Monocytes # (0-1.0) k/uL Monocytes # (Manual) (0-1.0) k/uL PT (9.0-12.0) sec INR (<1.2) APTT (22.0-30.0) sec ABG pH (7.35-7.45) ABG pO2 (83-108) mmHg ABG Total CO2 (19-24) mmol/L ABG O2 Saturation (94-97) % ABG Hematocrit (34.0-46.0) % ABG Ionized Calcium (4.5-5.3) mg/dL ABG Glucose (75-99) mg/dL Hemoglobin (13.0-17.5) gm/dL Sodium (137-145) mmol/L Glucose (74-99) mg/dL POC Glucose (mg/dL) 141 H 137 H 136 H (75-99) mg/dL Calcium (8.4-10.2) mg/dL Alkaline Phosphatase (38-126) U/L Total Protein (6.3-8.2) g/dL Albumin (3.5-5.0) g/dL HDL Cholesterol (40-60) mg/dL Arterial Blood Glucose (75-99) mg/dL Ur Specific [place] (1.001-1.035) Urine Ketones (Negative) Urine Blood (Negative) Urine RBC (0-5) /hpf Urine Mucus (None) /hpf Crossmatch 09/19/19 09/19/19 09/19/19 Range/Units 20:56 21:20 21:54 WBC (3.8-10.6) k/uL RBC (4.30-5.90) m/uL Hgb (13.0-17.5) gm/dL Hct (39.0-53.0) % Neutrophils # (1.3-7.7) k/uL Neutrophils # (Manual) (1.3-7.7) k/uL Monocytes # (0-1.0) k/uL Monocytes # (Manual) (0-1.0) k/uL PT (9.0-12.0) sec INR (<1.2) APTT (22.0-30.0) sec ABG pH (7.35-7.45) ABG pO2 (83-108) mmHg ABG Total CO2 (19-24) mmol/L ABG O2 Saturation (94-97) % ABG Hematocrit (34.0-46.0) % ABG Ionized Calcium (4.5-5.3) mg/dL ABG Glucose (75-99) mg/dL Hemoglobin (13.0-17.5) gm/dL Sodium (137-145) mmol/L Glucose (74-99) mg/dL POC Glucose (mg/dL) 149 H 140 H (75-99) mg/dL Calcium (8.4-10.2) mg/dL Alkaline Phosphatase (38-126) U/L Total Protein (6.3-8.2) g/dL Albumin (3.5-5.0) g/dL HDL Cholesterol (40-60) mg/dL Arterial Blood Glucose (75-99) mg/dL Ur Specific [place] >1.050 H (1.001-1.035) Urine Ketones 1+ H (Negative) Urine Blood Small H (Negative) Urine RBC 7 H (0-5) /hpf Urine Mucus Occasional H (None) /hpf Crossmatch 09/19/19 09/19/19 09/20/19 Range/Units 22:21 23:00 00:00 WBC 15.4 H (3.8-10.6) k/uL RBC 2.95 L (4.30-5.90) m/uL Hgb 8.9 L D (13.0-17.5) gm/dL Hct 26.7 L (39.0-53.0) % Neutrophils # (1.3-7.7) k/uL Neutrophils # (Manual) 12.47 H (1.3-7.7) k/uL Monocytes # (0-1.0) k/uL Monocytes # (Manual) 1.69 H (0-1.0) k/uL PT (9.0-12.0) sec INR (<1.2) APTT (22.0-30.0) sec ABG pH (7.35-7.45) ABG pO2 (83-108) mmHg ABG Total CO2 (19-24) mmol/L ABG O2 Saturation (94-97) % ABG Hematocrit (34.0-46.0) % ABG Ionized Calcium (4.5-5.3) mg/dL ABG Glucose (75-99) mg/dL Hemoglobin (13.0-17.5) gm/dL Sodium (137-145) mmol/L Glucose (74-99) mg/dL POC Glucose (mg/dL) 133 H 129 H (75-99) mg/dL Calcium (8.4-10.2) mg/dL Alkaline Phosphatase (38-126) U/L Total Protein (6.3-8.2) g/dL Albumin (3.5-5.0) g/dL HDL Cholesterol (40-60) mg/dL Arterial Blood Glucose (75-99) mg/dL Ur Specific [place] (1.001-1.035) Urine Ketones (Negative) Urine Blood (Negative) Urine RBC (0-5) /hpf Urine Mucus (None) /hpf Crossmatch 09/20/19 09/20/19 09/20/19 Range/Units 01:02 02:01 02:53 WBC (3.8-10.6) k/uL RBC (4.30-5.90) m/uL Hgb (13.0-17.5) gm/dL Hct (39.0-53.0) % Neutrophils # (1.3-7.7) k/uL Neutrophils # (Manual) (1.3-7.7) k/uL Monocytes # (0-1.0) k/uL Monocytes # (Manual) (0-1.0) k/uL PT (9.0-12.0) sec INR (<1.2) APTT (22.0-30.0) sec ABG pH (7.35-7.45) ABG pO2 (83-108) mmHg ABG Total CO2 (19-24) mmol/L ABG O2 Saturation (94-97) % ABG Hematocrit (34.0-46.0) % ABG Ionized Calcium (4.5-5.3) mg/dL ABG Glucose (75-99) mg/dL Hemoglobin (13.0-17.5) gm/dL Sodium (137-145) mmol/L Glucose (74-99) mg/dL POC Glucose (mg/dL) 139 H 142 H 137 H (75-99) mg/dL Calcium (8.4-10.2) mg/dL Alkaline Phosphatase (38-126) U/L Total Protein (6.3-8.2) g/dL Albumin (3.5-5.0) g/dL HDL Cholesterol (40-60) mg/dL Arterial Blood Glucose (75-99) mg/dL Ur Specific [place] (1.001-1.035) Urine Ketones (Negative) Urine Blood (Negative) Urine RBC (0-5) /hpf Urine Mucus (None) /hpf Crossmatch 09/20/19 09/20/19 09/20/19 Range/Units 04:04 04:04 04:04 WBC 17.2 H (3.8-10.6) k/uL RBC 2.77 L (4.30-5.90) m/uL Hgb 8.5 L (13.0-17.5) gm/dL Hct 25.0 L (39.0-53.0) % Neutrophils # (1.3-7.7) k/uL Neutrophils # (Manual) 12.38 H (1.3-7.7) k/uL Monocytes # (0-1.0) k/uL Monocytes # (Manual) 2.92 H (0-1.0) k/uL PT (9.0-12.0) sec INR (<1.2) APTT (22.0-30.0) sec ABG pH (7.35-7.45) ABG pO2 162 H (83-108) mmHg ABG Total CO2 (19-24) mmol/L ABG O2 Saturation 99.5 H (94-97) % ABG Hematocrit (34.0-46.0) % ABG Ionized Calcium (4.5-5.3) mg/dL ABG Glucose (75-99) mg/dL Hemoglobin (13.0-17.5) gm/dL Sodium 136 L (137-145) mmol/L Glucose 118 H (74-99) mg/dL POC Glucose (mg/dL) (75-99) mg/dL Calcium 7.8 L (8.4-10.2) mg/dL Alkaline Phosphatase 23 L (38-126) U/L Total Protein 5.5 L (6.3-8.2) g/dL Albumin (3.5-5.0) g/dL HDL Cholesterol (40-60) mg/dL Arterial Blood Glucose (75-99) mg/dL Ur Specific [place] (1.001-1.035) Urine Ketones (Negative) Urine Blood (Negative) Urine RBC (0-5) /hpf Urine Mucus (None) /hpf Crossmatch 09/20/19 09/20/19 09/20/19 Range/Units 04:05 05:01 06:00 WBC (3.8-10.6) k/uL RBC (4.30-5.90) m/uL Hgb (13.0-17.5) gm/dL Hct (39.0-53.0) % Neutrophils # (1.3-7.7) k/uL Neutrophils # (Manual) (1.3-7.7) k/uL Monocytes # (0-1.0) k/uL Monocytes # (Manual) (0-1.0) k/uL PT (9.0-12.0) sec INR 1.2 H (<1.2) APTT (22.0-30.0) sec ABG pH (7.35-7.45) ABG pO2 (83-108) mmHg ABG Total CO2 (19-24) mmol/L ABG O2 Saturation (94-97) % ABG Hematocrit (34.0-46.0) % ABG Ionized Calcium (4.5-5.3) mg/dL ABG Glucose (75-99) mg/dL Hemoglobin (13.0-17.5) gm/dL Sodium (137-145) mmol/L Glucose (74-99) mg/dL POC Glucose (mg/dL) 127 H 122 H (75-99) mg/dL Calcium (8.4-10.2) mg/dL Alkaline Phosphatase (38-126) U/L Total Protein (6.3-8.2) g/dL Albumin (3.5-5.0) g/dL HDL Cholesterol (40-60) mg/dL Arterial Blood Glucose (75-99) mg/dL Ur Specific [place] (1.001-1.035) Urine Ketones (Negative) Urine Blood (Negative) Urine RBC (0-5) /hpf Urine Mucus (None) /hpf Crossmatch 09/20/19 09/20/19 09/20/19 Range/Units 06:01 07:07 08:05 WBC (3.8-10.6) k/uL RBC (4.30-5.90) m/uL Hgb (13.0-17.5) gm/dL Hct (39.0-53.0) % Neutrophils # (1.3-7.7) k/uL Neutrophils # (Manual) (1.3-7.7) k/uL Monocytes # (0-1.0) k/uL Monocytes # (Manual) (0-1.0) k/uL PT (9.0-12.0) sec INR (<1.2) APTT (22.0-30.0) sec ABG pH (7.35-7.45) ABG pO2 (83-108) mmHg ABG Total CO2 (19-24) mmol/L ABG O2 Saturation (94-97) % ABG Hematocrit (34.0-46.0) % ABG Ionized Calcium (4.5-5.3) mg/dL ABG Glucose (75-99) mg/dL Hemoglobin (13.0-17.5) gm/dL Sodium (137-145) mmol/L Glucose (74-99) mg/dL POC Glucose (mg/dL) 127 H 133 H 126 H (75-99) mg/dL Calcium (8.4-10.2) mg/dL Alkaline Phosphatase (38-126) U/L Total Protein (6.3-8.2) g/dL Albumin (3.5-5.0) g/dL HDL Cholesterol (40-60) mg/dL Arterial Blood Glucose (75-99) mg/dL Ur Specific [place] (1.001-1.035) Urine Ketones (Negative) Urine Blood (Negative) Urine RBC (0-5) /hpf Urine Mucus (None) /hpf Crossmatch - Imaging and Cardiology Chest x-ray: report reviewed, image reviewed Assessment and Plan Assessment: 1. Coronary artery disease, unstable angina, preoperative placement of intra- aortic balloon pump, status post emergent off-pump CABG 1 2. History of hypertension, currently hypotensive on IV Levophed 3. Hyperlipidemia 4. History of pulmonary embolus on no anticoagulation 5. Daily EtOH use 6. Marijuana use 7. Obesity 8. Family history of premature coronary artery disease 9. Postoperative acute blood loss anemia Plan: 1. Continue aspirin, statin, Plavix, beta taco therapy. Will increase beta taco as tolerated. Wean levo as tolerated. 2. Likely will discontinue intra-aortic balloon pump this morning. Placed to 1:2 augmentation 3. Wean from mechanical ventilator as able, mechanical ventilator management, bronchodilators per pulmonology. Once extubated encourage incentive spirometry 10 times every hour while awake 4. Once extubated Will increase activity as tolerated. PT/OT/cardiac rehab consulted 5. Will monitor daily labs and x-rays. Electrolyte replacement per protocol. No transfusion at this point. 6. Insulin management per primary care service 7. Pain control with current medication regimen 8. GI/DVT prophylaxis 9. May discontinue right femoral artery heart catheterization sheath 10. Will continue chest tubes for another 24 hours 11. Will continue Roberts catheter for another 24 hours for strict accurate intake and output 12. More recommendations to follow based on patient's progress Time with Patient: Greater than 30
[2019-09-20 09:11] LABS: Glucose,Whole Blood 123 mg/dL (75-99)
[2019-09-20] MEDS ORDERED: PROPOFOL 1,000 MG in EMPTY BAG 1 BAG IV SCH (09:35)
--- NOTE | 2019-09-20 09:41 | OP ---
OPERATIVE REPORT DATE OF THE SURGERY: 09/19/2019. SURGEON: Dr. Donaldo Lema. FIELD CLERK: Attila Pham and Ricky Simons NP. PREOPERATIVE DIAGNOSES: 1. Status post PCI stenting of the diagonal artery with compromised LAD. 2. Inability to fix the LAD, intraaortic balloon pump insertion in the stucco laborer. 3. Obesity. 4. Hypertension. 5. ETOH abuse. 6. Effient intake POSTOPERATIVE DIAGNOSES: 1. Status post PCI stenting of the diagonal artery with compromised LAD. 2. Inability to fix the LAD, intraaortic balloon pump insertion in the stucco laborer. 3. Obesity. 4. Hypertension. 5. ETOH abuse. 6. Effient intake PROCEDURE PERFORMED: 1. Emergency beating heart, single-vessel coronary artery bypass grafting using the left internal mammary artery to the left anterior descending artery. 2. KEISHA and epiaortic scanning. 3. Intraoperative graft flow measurements using the [employer] system. INDICATION FOR SURGERY: The patient is a 49-year-old gentleman who presented for elective double stenting of the bifurcation LAD diagonal. The diagonal stent was deployed initially and that interfered with being able to pass any balloon into the main LAD despite multiple attempts. The LAD was compromised with a ROBERTO 2 flow with a wire in place, and that goes to actually much slower flow with the wire out. The guiding catheter was left in place as well as the wire through the LAD stenosis to ensure better flow in preparation for surgery. Intra-aortic balloon pump was placed preemptively. The patient remained pain-free and hemodynamically stable with no EKG changes. The emergency nature of the procedure and the fact that there is an increased STS risk and in particular risk of bleeding in view of Effient intake was explained to him and to his girlfriend. They understood them and agreed to proceed. DESCRIPTION OF THE PROCEDURE: The patient was brought to the operating room where a right internal jugular [place]-Tate catheter and a right radial arterial line were placed. He had normal PA pressure and good cardiac index. Subsequently general endotracheal anesthesia was uneventfully induced. Roberts catheter was inserted. The chest, abdomen and both lower extremities were prepped and draped using ChloraPrep. Ioban was used to cover the skin. Patient received 3 grams of cefazolin intravenously. KEISHA showed preserved left ventricular function and no significant valvular abnormality. Midline sternotomy was performed and no bone wax was used. There was profuse bleeding again in view of Effient intake. The left hemisternum was elevated. The left internal mammary artery was harvested in a somewhat skeletonized fashion. The left pleura was intentionally opened in this process and was drained with a 19-Samoan Hermelindo drain. The patient was given 5000 units of heparin and the mammary was double clipped distally and transected, had an excellent pulsatile flow in it and was around 1.75 mm in diameter. Mediastinal fat which was very thick was transected between 2 ties and epiaortic scanning revealed normal ascending aorta. Pericardium was opened in an inverted T- fashion and a pericardial cradle was created. Findings included a normal size heart and a short soft aorta. The acrobat system along with the stabilizer and the Mister blower were used to perform the surgery on a beating heart. The heart was displaced medially with 2 laps behind it laterally with good tolerance hemodynamically. The LAD was readily exposed in its mid to distal aspect. It was around 2 mm in diameter and thin-walled. It was opened, had a brisk flow and a 2 mm flow through shunt was placed. Subsequently, the left internal mammary artery was anastomosed to it using Prolene 7-0 in continuous fashion. The shunt was removed before completing the anastomosis which was well tolerated. The mammary pedicle was affixed to the epicardium with 2 Prolene 7- 0 sutures. The [employer] system was used to measure graft flow. The flow was 16 mL/minute, pulsatility index of 4.2, diastolic filling of 36% with evidence of competitive flow on the tracing. With that, 50 mg of protamine were given. Two [place] drain were left substernally. One of them was actually placed in the posterior pericardium. A deep groove has been made in the left pleuro- pericardial fat to accommodate the mammary artery medial to the lung and away from the posterior sternal table. Thick layer of Pericardial fat was approximated over the heart and the aorta. It took a while to achieve hemostasis satisfactory enough to close the sternum. The sternum was subsequently approximated using 5 [id number] pionneer cables after interposing fibular between the sternal edges. Thorough irrigation of cefazolin followed. The rest of the closure proceeded in layers. Skin glue was applied. The patient did not receive any blood bank product but received around 1 L of Cell Saver blood. He was transferred to the ICU on low-dose nitroglycerin with excellent hemodynamic intra-aortic balloon pump 1-1 with normal EKG. MMSHARMAINE / IJN: [id number] / MTDDarwin
--- NOTE | 2019-09-20 10:00 | CONS ---
CONSULTATION DATE OF SERVICE: 09/19/2019 REASON FOR CONSULTATION: Advice regarding pulmonary embolism and multiple other medical issues requested by Cardiothoracic surgery. HISTORY OF PRESENT ILLNESS: This 49-year-old gentleman with a past medical history of CAD, history of hypertension, hyperlipidemia, hypertension, history of pulmonary embolism being followed by Dr. Efrain Hernandez in the outpatient setting, also had significant issues with alcohol, used to drink like several beers a day up to more than 14 a week according to the history. The patient underwent cardiac catheterization by Dr. Cox today which showed 90% stenosis of the LAD and also part of the diagonal branch 90% stenosis of the diagonal branch. The patient was evaluated by cardiothoracic surgery and the patient underwent GARDNER to LAD, and the patient was admitted to ICU at this time. The patient is on aortic balloon pump. The patient is being closely monitored. Mechanical ventilation. The patient also had some while trying to extubate at this time. The patient is started on CIWA protocol for alcohol. As far as the diabetes is concerned, the random blood sugar was found to be 140. The patient is currently on insulin 2.5 units. The patient being closely monitored. The patient unable to give a coherent history. Most of the history taken from my discussions with staff and review of the chart. PAST MEDICAL HISTORY: History of CAD, history of chest pain, hypertension, hyperlipidemia, history of pulmonary embolism, history of CAD/CABG. MEDICATIONS: Home medications are reviewed and include: 1. Zestril 10 mg q.h.s. 2. Imdur 30 mg daily. 3. Lipitor 10 mg at bedtime. 4. Aspirin 81 mg p.o. daily. ALLERGIES: None. Family history, social history and review of systems could not be taken because the patient is mechanically ventilated. The patient is intubated, sedated. Family history of CAD, CABG per chart and no history of smoking, alcohol as mentioned earlier. PHYSICAL EXAM: Patient is mechanically ventilated and sedated. Pulse is 99. Blood pressure 92/50. Respirations 20. Temperature is normal. Pulse ox 98% on 50% mechanical ventilation. Vent settings are noted. HEENT: Conjunctivae normal. NECK: No JVD. CARDIOVASCULAR: S1, S2 muffled. RESPIRATORY: Breath sounds diminished in the bases. A few scattered rhonchi and crackles. ABDOMEN: Soft. Nervous system: The patient is sedated. SKIN: No ulcers, rashes or bleeding. JOINTS: No active deforming arthropathy. LABS: At this time, WBC 16.5, hemoglobin 10.4. ABGs noted. Sodium 136 and glucose 140, albumin is 3.3 and AST, ALT are normal and HDL is 32. UA noted. Hepatitis panel nonreactive. ASSESSMENT: 1. Coronary artery disease, coronary artery bypass grafting, status post GARDNER to LAD. 2. Hypertension. 3. Hyperlipidemia. 4. History of pulmonary embolism. 5. History EtOH. 6. History of coronary artery disease, coronary artery bypass grafting. 7. Obesity with body mass index 37.9. RECOMMENDATIONS AND DISCUSSION: This 49 gentleman who presented with multiple medical issues, at this time, I recommend to continue current management and symptomatic treatment. Otherwise, follow closely. Recommend CIWA protocol. Once the patient is p.o. the Accu-Cheks, and insulin scale may be used. Otherwise, vent management per Dr. Wynn. Continue the rest of medications. The rest of the recommendations per Cardiothoracic surgery. Further recommendations to follow. DVT prophylaxis. A copy of dictation being forward to Dr. Efrain Hernandez who is the primary care physician. Thank you Dr. Lema for letting us participate in the care of this patient. MMODL / IJN: [id number] / MOISES
[2019-09-20 10:11] LABS: Glucose,Whole Blood 126 mg/dL (75-99)
--- NOTE | 2019-09-20 10:54 | PN ---
PROGRESS NOTE Mr. Waterman is a 49-year-old male who has been having angina pectoris and abnormal myocardial perfusion imaging, underwent cardiac catheterization yesterday by Dr. Cox and was found to have a complex mid LAD and first diagonal branch lesion and underwent an attempt stenting of the LAD in the diagonal branch that was unsuccessful, intra- aortic balloon pump was placed and subsequently went for emergency coronary bypass grafting with GADRNER to LAD. He remains intubated and sedated on low-dose norepinephrine. His intra-aortic balloon pump is being weaned. There is some oozing from the chest tube. He has no evidence of malignant arrhythmia. His EKG shows no acute changes. He continues to be at this time on aspirin once a day, Plavix 75 mg daily, Lipitor 40 mg daily. PHYSICAL EXAMINATION: Blood pressure 130/60, pulmonary artery systolic pressure of 34, heart rate in the 60s. HEAD: Normocephalic. Eyes sclerae anicteric. LUNGS: Clear to auscultation anteriorly. HEART: Regular rhythm S1, S2. No S3. No rub appreciated. ABDOMEN: Soft and nontender. EXTREMITIES: No edema. Intra-aortic balloon pump noted on the left side with a 6- Turkish sheath on the right femoral artery. LAB DATA: Lab data revealed a hemoglobin of 8.5. BUN and creatinine of 14 and 0.75. Chest x-ray shows placement intraaortic pump with an effusion on the left side. The EKG shows no acute changes. IMPRESSION: 1. Status post emergent coronary artery bypass grafting with GARDNER to LAD. 2. History of hypertension. 3. Hyperlipidemia. RECOMMENDATIONS: We will hopefully wean the intra-aortic balloon pump today and pull the arterial sheath from the right femoral artery. Extubate the patient. Continue medical therapy and depending on his progress, further recommendations will be made. MMODL / IJN: [id number] /
[2019-09-20 11:23] LABS: Glucose,Whole Blood 119 mg/dL (75-99)
--- NOTE | 2019-09-20 12:00 | PTCA ---
PERCUTANEOUSTRANS CORORONARY ANGIOGRAPHY Mr. Waterman is a 49-year-old male with known history of hypertension, hyperlipidemia, who presented with symptoms of chest discomfort, had an abnormal myocardial perfusion imaging, underwent cardiac catheterization by Dr. Cox and was found to have critical stenosis involving the first diagonal branch with subtotally occluded diagonal branch and critical stenosis at the takeoff of the diagonal branch involving the LAD. He had a Pascal classification 1,1,1. In view of that, recommendation was made regarding angioplasty and stenting. The procedure, its risks and complication were discussed with the patient, who was in full understanding and agreement. PROCEDURE DESCRIPTION: A 6-Kinyarwanda FR4 guiding catheter was introduced into the system. After cannulating the left main, a 0.014 balanced medium-weight J-wire was advanced into the LAD and positioned distally. Subsequently, a 0.014 balanced medium-weight J-wire was advanced, and attempts to cross the subtotal occlusion of the diagonal branch were unsuccessful. That wire was removed and a 0.014 Whisper J-wire with the help of a SuperCross straight was used to cross the lesion and positioned distally. Subsequently a 2.0 X 12 mm Trek balloon was advanced in the diagonal branch and multiple inflations were done to a maximum of 8 atmospheres. Following that, the balloon was removed and a 2.5 x 12 mm Trek balloon was advanced in the LAD and one inflation at 10 atmospheres was done. Following that, the balloon was removed and a 2.25 x 23 mm Xience stent was advanced to the diagonal branch with the proximal segment of the stent in the LAD. The 2.5 x 12 mm Trek balloon was withdrawn to the bifurcation segment. The stent was deployed and post- dilated at 16 atmospheres. Following that, the balloon was removed, and in the process of removing the stent, the balloon across the bifurcation was displaced and there was inability to readvance the balloon because of the hanging struts of the diagonal branch stent into the LAD. Multiple attempts to advance a different wire, a 1.2 x 6 mm Trek balloon, were unsuccessful. The patient had mild chest discomfort when the wire was removed. The wire was reintroduced in the LAD and positioned distally with resolution of the chest pain and no evidence of EKG changes at that point. Because of the inability to recross the LAD to cross the stent of the diagonal branch, an intraaortic balloon pump was introduced through the left femoral artery using Xylocaine anesthesia and Seldinger technique, and after positioning under fluoroscopy, it was sutured in place. At that time recommendation was made to proceed with emergent coronary artery bypass grafting with GARDNER to the LAD. The findings as well as recommendations were discussed with the patient and his family, and they were in full understanding and agreement. The patient was evaluated by Dr. Lema in the cardiac catheterization lab. Of note that he was pain-free and had no EKG changes at the end of the procedure. He has received Angiomax per protocol as well as oral loading dose of Effient. RESULTS: Unsuccessful stenting of a complex LAD lesion with inability to re-stent the LAD because of the hanging struts of the stent of the diagonal branch. The wire was kept into the LAD to maintain flow. The patient was transferred to the operating room in stable condition. Duration of procedure was 126 minutes. MMSHARMAINE / RANDOLPHN: [id number] /
[2019-09-20] MEDS ORDERED: CALCIUM GLUCONATE 1 GM in SODIUM CHLORIDE 0.9% 100 ML IVPB ONE (12:23)
[2019-09-20 13:06] LABS: Glucose,Whole Blood 122 mg/dL (75-99)
[2019-09-20] MEDS: METOPROLOL TARTRATE 12.5 MG TAB PO SCH ×2 (13:24→20:54)
[2019-09-20] MEDS: CHLORHEXIDINE GLUCONATE 15 ML CUP MUCOUS MEM SCH ×2 (13:24→21:07)
[2019-09-20] MEDS: ATORVASTATIN 40 MG TAB PO SCH (13:24)
[2019-09-20] MEDS: THIAMINE 100 MG TAB PO SCH ×2 (13:24→18:17)
[2019-09-20] MEDS: MULTIVITAMINS, THERA 1 EACH TAB PO SCH (13:25)
[2019-09-20] MEDS: MUPIROCIN 2% OINT 22 GM TUBE NASAL SCH ×2 (13:25→20:54)
[2019-09-20] MEDS: PANTOPRAZOLE 40 MG/10 ML VIAL IVP SCH (13:25)
[2019-09-20] MEDS: SODIUM CHLORIDE 0.9% 1,000 ML IV SCH (13:47)
[2019-09-20] MEDS: CLOPIDOGREL 75 MG TAB PO SCH (13:48)
[2019-09-20] MEDS: ASPIRIN 325 MG TAB PO SCH (13:48)
[2019-09-20 13:49] LABS: ABG HCO3 23 mmol/L (21-25); ABG Oxygen Saturation 98.3 % (94-97); ABG PCO2 36 mmHg (35-45); ABG PH 7.41 (7.35-7.45); ABG PO2 89 mmHg (83-108); ABG TCO2 24 mmol/L (19-24); Allen Test Performed? Yes
[2019-09-20 13:59] LABS: Glucose,Whole Blood 115 mg/dL (75-99)
--- NOTE | 2019-09-20 14:30 | P.PCN ---
Indications for Procedure: This is a 49-year-old male who was found to have multivessel coronary artery disease. An intra-aortic balloon pump was placed in the lab by Dr. Vincent. He went for emergent coronary artery bypass yesterday and has done well. This morning he was hemodynamically stable, and no longer in need of intra-aortic balloon pump assistance. Removal of the device was recommended. The risks, benefits, alternatives procedure were revealed to the patient. Description of Procedure: The left groin was examined. There was no evidence of hematoma although there was some oozing at the site. The balloon pump was turned off. The pre-existing sheath and balloon were removed en ekta and artery was allowed to bleed both antegrade and retrograde for several beats. Direct pressure was held over the site for 30 minutes. There was no residual bleeding or hematoma noted. The groin itself was soft. The left lower extremity appeared warm and well perfused. There was no immediate complications. He remained hemodynamically stable with a good follow-up cardiac index.
[2019-09-20 15:30] LABS: Glucose,Whole Blood 107 mg/dL (75-99)
[2019-09-20 16:23] LABS: Glucose,Whole Blood 114 mg/dL (75-99)
--- NOTE | 2019-09-20 16:47 | P.CNPUL ---
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 parameters. At the weaning parameters of old adequate, the patient will be given a spontaneous breathing trial and following that he may be considered for extubation Check for signs of delirium tremens once the patient has been weaned off the sedation Marital intra-aortic balloon pump per cardiothoracic surgery We'll continue to follow Monitor the output from the chest tubes Possible extubation within next few hours depending on his condition and his progress.
[2019-09-20] MEDS: KETOROLAC 30 MG/ML 1 ML VIAL IVP SCH ×2 (18:17→23:18)
[2019-09-20 18:18] LABS: Glucose,Whole Blood 114 mg/dL (75-99)
[2019-09-20 19:15] LABS: Glucose,Whole Blood 113 mg/dL (75-99)
[2019-09-20] MEDS ORDERED: DEXMEDETOMIDINE/0.9% NACL(PMX) 400 MCG in EMPTY BAG 1 BAG IV SCH (19:30)
[2019-09-20 20:39] LABS: Glucose,Whole Blood 100 mg/dL (75-99)
[2019-09-20] MEDS: SENNOSIDES-DOCUSATE SODIUM 1 EACH TAB PO SCH (20:54)
--- NOTE | 2019-09-20 22:11 | PN ---
PROGRESS NOTE DATE OF SERVICE: 09/20/2019 This 49-year-old gentleman being followed by Dr. Efrain Hernandez in the outpatient setting was admitted after CAD, GARDNER to LAD. The patient is extubated. The patient being closely monitored. Multiple consultants are following the patient closely. Dr. Wynn has seen the patient as well. Cardiothoracic surgery is following the patient closely. The patient is still on Levophed drip. PAST MEDICAL HISTORY: Reviewed. REVIEW OF SYSTEMS: Cardiovascular: As mentioned earlier. Respiratory: As mentioned earlier. GI: As mentioned earlier. no dysuria. Nervous system: No numbness or weakness. MEDICATIONS: Reviewed and include: 1. Wilber[place] 5 mg q.4 p.r.n. 3. DuoNeb q.i.d. and p.r.n. 4. Amiodarone drip. 5. Aspirin 40 mg daily. 6. Cepacol. 7. Plavix. 8. Insulin. 9. Toradol. 10.Ativan. 11.Multivitamins. PHYSICAL EXAMINATION: The patient is alert and oriented times three. Pulse 98, blood pressure 127/63, respiration 20, temperature normal, pulse ox 94% on room air. HEENT: Conjunctivae normal. NECK: No JVD. CARDIOVASCULAR: S1, S2 muffled. RESPIRATIONS: Breath sounds diminished in the bases. A few scattered rhonchi and crackles. ABDOMEN: Soft. LEGS: No edema. No swelling. CENTRAL NERVOUS SYSTEM: No focal deficits. LABS: CBC noted. ABGs noted. Glucose 114. WBC 7.7, hemoglobin 7.5. UA noted. ASSESSMENT: 1. Coronary artery disease, coronary artery bypass grafting, status post GARDNER to LAD. 2. Hypertension. 3. Hyperlipidemia. 4. History of pulmonary embolus. 5. History of EtOH. 6. History of coronary artery disease, coronary artery bypass grafting. 7. History of obesity with body mass index of 37.9. RECOMMENDATIONS AND DISCUSSION: Recommend to continue current medications, management and symptomatic treatment. I recommend DVT prophylaxis and continue to monitor. Prognosis guarded. Further recommendations to follow. MMODL / IJN: [id number] / MTDD
[2019-09-20 22:26] LABS: Glucose,Whole Blood 122 mg/dL (75-99)
[2019-09-21 00:53] LABS: Glucose,Whole Blood 120 mg/dL (75-99)
[2019-09-21 02:23] LABS: Glucose,Whole Blood 123 mg/dL (75-99)
[2019-09-21 04:29] LABS: Glucose,Whole Blood 123 mg/dL (75-99)
[2019-09-21] MEDS: HYDROcodone/APAP 5-325MG 1 EACH TAB PO PRN ×3 (04:37→20:56)
[2019-09-21 05:15] LABS: HCT 25.2 % (39.0-53.0); HGB 8.5 gm/dL (13.0-17.5); MCH 30.3 pg (25.0-35.0); MCHC 33.8 g/dL (31.0-37.0); MCV 89.6 fL (80.0-100.0); Mean Platelet Volume 7.8; Platelet Count 196 k/uL (150-450); RBC 2.82 m/uL (4.30-5.90); RDW 12.4 % (11.5-15.5); WBC 15.9 k/uL (3.8-10.6)
[2019-09-21 05:19] LABS: Ionized Calcium 4.6 mg/dL (4.5-5.3)
[2019-09-21 05:29] LABS: ALT 10 U/L (4-49); AST 23 U/L (17-59); African American GFR (CKD) >90 (>60 ml/min/1.73 sqM); Albumin 3.2 g/dL (3.5-5.0); Alkaline Phosphatase 38 U/L (38-126); Anion Gap 10 mmol/L; Blood Urea Nitrogen 13 mg/dL (9-20); Carbon Dioxide 21 mmol/L (22-30); Chloride 104 mmol/L (98-107); Glucose 107 mg/dL (74-99); Non-African American GFR(CKD) >90 (>60 ml/min/1.73 sqM); Sodium 135 mmol/L (137-145); Total Bilirubin 0.6 mg/dL (0.2-1.3); Total Protein 5.4 g/dL (6.3-8.2)
[2019-09-21 05:47] LABS: Eosinophils # (M) 0.16 k/uL (0-0.7); Nucleated Red Blood Cells 0 /100 WBC (0-0)
[2019-09-21 05:49] LABS: Lymphocytes # (M) 0.64 k/uL (1.0-4.8); Monocytes # (M) 2.86 k/uL (0-1.0); Neutrophils % (M) 78 %; Total Cells Counted 200
[2019-09-21] MEDS: KETOROLAC 30 MG/ML 1 ML VIAL IVP SCH ×3 (06:23→18:15)
[2019-09-21 06:57] LABS: Glucose,Whole Blood 123 mg/dL (75-99)
[2019-09-21] MEDS: IPRATROPIUM-ALBUTEROL 3 ML NEB INHALATION SCH ×4 (07:17→19:52)
--- NOTE | 2019-09-21 07:48 | XR ---
EXAMINATION TYPE: XR chest 1V portable DATE OF EXAM: 09/21/2019 COMPARISON: 09/20/2019 HISTORY: Post cardiac surgery TECHNIQUE: Single frontal view of the chest is obtained. FINDINGS: [place]-Tate catheter seen an additional NG tube balloon pump marker now seen on today's exam . Limited inspiration cardiomegaly bilateral consolidation and pleural effusion no pneumothorax IMPRESSION: 1. Postsurgical changes with stable bilateral lower lobe infiltrate and small effusion.
--- NOTE | 2019-09-21 08:25 | P.PN ---
Subjective Progress Note Date: 09/21/19 Principal diagnosis: Coronary artery disease status post PCI stenting of the diagonal artery with compromised LAD, unstable angina, inability to fix the LAD, preoperative placement of intra-aortic balloon pump, preoperative Effient intake. Previous medical history of hypertension, hyperlipidemia, pulmonary embolus on no anticoagulation, daily EtOH use, marijuana use, obesity, and family history of premature coronary artery disease. POD #2 emergency beating heart single-vessel coronary artery bypass grafting using the left internal mammary artery to the left anterior descending artery. Intraoperative transesophageal echocardiogram and epi-aortic scanning. Intraoperative graft flow measurements using the Medist[employer] system. Postoperative acute blood loss anemia, expected outcome of surgery. Postoperative hypotension, expected outcome The patient is currently sitting up in a recliner in the intensive care unit in no acute distress. He was successfully extubated yesterday at 14:33. Intra- aortic balloon pump and right femoral artery heart catheterization sheath were removed yesterday morning. States postoperative pain is controlled with current medication regimen, denies shortness of breath. Remains in normal sinus rhythm and hemodynamically stable on small dose IV Levophed. Hulbert/Cordis, radial arterial line, chest tubes remain present. No new concerns. Objective - Vital Signs Vital signs: Vital Signs Temp 99.1 F 09/21/19 04:00 Pulse 110 H 09/21/19 07:30 Resp 23 09/21/19 07:00 BP 117/81 09/21/19 07:00 Pulse Ox 95 09/21/19 07:00 Intake & Output 09/20/19 09/21/19 09/21/19 18:59 06:59 18:59 Intake Total 4975.528 1051.686 29 Output Total 960 937 40 Balance 1029.987 435.686 -11 Weight 133.9 kg Intake: IV 1438 481 29 CO/CI Injectate 715 100 IABP Pressure Bag 9 Normal Saline Pressure 144 111 9 Bag Sodium Chloride 0.9% 1, 520 270 20 000 ml @ 20 mls/hr IV . Q24H ISA[facility] Rx#:[id number] ceFAZolin 2 gm In Sodium 50 Chloride 0.9% 50 ml @ 100 mls/hr IVPB Q8H [facility] Rx#: [id number] Intake, IV Titration 551.987 241.686 Amount Dexmedetomidine/0.9% NaCl 170.455 (Pmx) 400 mcg In Empty Bag 1 bag @ Titrate IV . Q0M [facility] Rx#:[id number] Dexmedetomidine/0.9% NaCl 100.000 (Pmx) 400 mcg In Empty Bag 1 bag @ Titrate IV . Q0M [facility] Rx#:[id number] Insulin Regular 100 unit 11.717 In Sodium Chloride 0.9% 100 ml @ Per Protocol IV .Q0M [facility]H Rx#:[id number] Nitroglycerin-D5w Pmx 50 29.475 mg In Dextrose/Water 1 250ml.bag @ 5 MCG/MIN 1.5 mls/hr IV .Q24H [facility] Rx#: [id number] Norepinephrine 4 mg In 329.940 141.686 Sodium Chloride 0.9% 250 ml @ 0.05 MCG/KG/MIN 24. 136 mls/hr IV .[id number] [facility] Rx#:[id number] Propofol 1,000 mg In 10.400 Empty Bag 1 bag @ Titrate IV .Q0M ISAIAH Rx#: [id number] Oral 650 Output: Chest Tube Drainage [address] X 2 180 170 20 Urine 700 697 20 Other: Voiding Method Indwelling Catheter Indwelling Catheter ABP, PAP, CO, CI - Last Documented Arterial Blood Pressure 90/54 Pulmonary Artery Pressure 21/2 Cardiac Output 10.4 Cardiac Index 4.2 - Constitutional General appearance: Present: cooperative, no acute distress, obese - Respiratory Details: Lungs sounds diminished bilaterally. Respirations even, nonlabored. Currently on 4 L nasal cannula with oxygen saturation 92%. Able to achieve 1250 mL on his incentive spirometry. Strong cough. Mediastinal chest tube present to continuous wall suction, 70 milliliters serosanguineous drainage overnight, 350 ml in the last 24 hours, no air leak present. Left pleural chest tube to continuous wall suction, 50 ml serosanguineous drainage overnight, 200 ml in the last 24 hours, no air leak present. - Cardiovascular Details: S1, S2 present. Tachycardic but regular rate and rhythm, sinus tach on telemetry. Sternum stable. Right internal jugular Hulbert/Cordis, right radial arterial line present. Last CO/CI 10.4/4.2 on low-dose IV Levophed. Trace lower extremity edema present. Palpable peripheral pulses bilaterally. No calf pain or tenderness noted. Heart hugger in place with patient demonstrating appropriate use. Antiembolism stockings, SCDs present. - Gastrointestinal Gastrointestinal Comment(s): Abdomen soft, nontender, nondistended. Hypoactive bowel sounds present 4 quadrants. Tolerating full liquids. Negative flatus, positive belching - Genitourinary Genitourinary Comment(s): Roberts present draining clear, yellow urine. Output 45-205 mL per hour overnight - Integumentary Integumentary Comment(s): Skin is warm and dry with evidence of good perfusion. Anterior chest incision well approximated and covered with dry intact dressing. - Neurologic Neurologic: Present: CNII-XII intact - Musculoskeletal Musculoskeletal: Present: gait normal, strength equal bilaterally - Psychiatric Psychiatric: Present: A&O x's 3, appropriate affect, intact judgment & insight - Allied health notes Allied health notes reviewed: nursing - Labs CBC & Chem 7: 09/21/19 04:26 09/21/19 04:26 Labs: Abnormal Lab Results - Last 24 Hours (Table) 09/19/19 09/20/19 09/20/19 Range/Units 10:10 09:09 11:22 WBC (3.8-10.6) k/uL RBC (4.30-5.90) m/uL Hgb (13.0-17.5) gm/dL Hct (39.0-53.0) % Neutrophils # (Manual) (1.3-7.7) k/uL Lymphocytes # (Manual) (1.0-4.8) k/uL Monocytes # (Manual) (0-1.0) k/uL ABG O2 Saturation (94-97) % Sodium (137-145) mmol/L Carbon Dioxide (22-30) mmol/L Glucose (74-99) mg/dL POC Glucose (mg/dL) 123 H 119 H (75-99) mg/dL Calcium (8.4-10.2) mg/dL Total Protein (6.3-8.2) g/dL Albumin (3.5-5.0) g/dL Crossmatch See Detail 09/20/19 09/20/19 09/20/19 Range/Units 13:05 13:47 13:57 WBC (3.8-10.6) k/uL RBC (4.30-5.90) m/uL Hgb (13.0-17.5) gm/dL Hct (39.0-53.0) % Neutrophils # (Manual) (1.3-7.7) k/uL Lymphocytes # (Manual) (1.0-4.8) k/uL Monocytes # (Manual) (0-1.0) k/uL ABG O2 Saturation 98.3 H (94-97) % Sodium (137-145) mmol/L Carbon Dioxide (22-30) mmol/L Glucose (74-99) mg/dL POC Glucose (mg/dL) 122 H 115 H (75-99) mg/dL Calcium (8.4-10.2) mg/dL Total Protein (6.3-8.2) g/dL Albumin (3.5-5.0) g/dL Crossmatch 09/20/19 09/20/19 09/20/19 Range/Units 15:29 16:22 18:15 WBC (3.8-10.6) k/uL RBC (4.30-5.90) m/uL Hgb (13.0-17.5) gm/dL Hct (39.0-53.0) % Neutrophils # (Manual) (1.3-7.7) k/uL Lymphocytes # (Manual) (1.0-4.8) k/uL Monocytes # (Manual) (0-1.0) k/uL ABG O2 Saturation (94-97) % Sodium (137-145) mmol/L Carbon Dioxide (22-30) mmol/L Glucose (74-99) mg/dL POC Glucose (mg/dL) 107 H 114 H 114 H (75-99) mg/dL Calcium (8.4-10.2) mg/dL Total Protein (6.3-8.2) g/dL Albumin (3.5-5.0) g/dL Crossmatch 09/20/19 09/20/19 09/20/19 Range/Units 19:13 20:38 22:25 WBC (3.8-10.6) k/uL RBC (4.30-5.90) m/uL Hgb (13.0-17.5) gm/dL Hct (39.0-53.0) % Neutrophils # (Manual) (1.3-7.7) k/uL Lymphocytes # (Manual) (1.0-4.8) k/uL Monocytes # (Manual) (0-1.0) k/uL ABG O2 Saturation (94-97) % Sodium (137-145) mmol/L Carbon Dioxide (22-30) mmol/L Glucose (74-99) mg/dL POC Glucose (mg/dL) 113 H 100 H 122 H (75-99) mg/dL Calcium (8.4-10.2) mg/dL Total Protein (6.3-8.2) g/dL Albumin (3.5-5.0) g/dL Crossmatch 09/21/19 09/21/19 09/21/19 Range/Units 00:45 02:21 04:26 WBC 15.9 H (3.8-10.6) k/uL RBC 2.82 L (4.30-5.90) m/uL Hgb 8.5 L (13.0-17.5) gm/dL Hct 25.2 L (39.0-53.0) % Neutrophils # (Manual) 12.40 H (1.3-7.7) k/uL Lymphocytes # (Manual) 0.64 L (1.0-4.8) k/uL Monocytes # (Manual) 2.86 H (0-1.0) k/uL ABG O2 Saturation (94-97) % Sodium (137-145) mmol/L Carbon Dioxide (22-30) mmol/L Glucose (74-99) mg/dL POC Glucose (mg/dL) 120 H 123 H (75-99) mg/dL Calcium (8.4-10.2) mg/dL Total Protein (6.3-8.2) g/dL Albumin (3.5-5.0) g/dL Crossmatch 09/21/19 09/21/19 09/21/19 Range/Units 04:26 04:26 06:56 WBC (3.8-10.6) k/uL RBC (4.30-5.90) m/uL Hgb (13.0-17.5) gm/dL Hct (39.0-53.0) % Neutrophils # (Manual) (1.3-7.7) k/uL Lymphocytes # (Manual) (1.0-4.8) k/uL Monocytes # (Manual) (0-1.0) k/uL ABG O2 Saturation (94-97) % Sodium 135 L (137-145) mmol/L Carbon Dioxide 21 L (22-30) mmol/L Glucose 107 H (74-99) mg/dL POC Glucose (mg/dL) 123 H 123 H (75-99) mg/dL Calcium 8.0 L (8.4-10.2) mg/dL Total Protein 5.4 L (6.3-8.2) g/dL Albumin 3.2 L (3.5-5.0) g/dL Crossmatch - Imaging and Cardiology Chest x-ray: report reviewed, image reviewed Assessment and Plan Assessment: 1. Coronary artery disease, unstable angina, preoperative placement of intra- aortic balloon pump, status post emergent off-pump CABG 1 2. History of hypertension, currently hypotensive on IV Levophed 3. Hyperlipidemia 4. History of pulmonary embolus on no anticoagulation 5. Daily EtOH use 6. Marijuana use 7. Obesity 8. Family history of premature coronary artery disease 9. Postoperative acute blood loss anemia Plan: 1. Continue aspirin, statin, Plavix, beta taco therapy. Will increase beta taco as tolerated. Levo DC'd 2. Wean O2 as tolerated. Encourage incentive spirometry 10 times every hour while awake. Bronchodilators per pulmonology 3. Increase activity as tolerated. PT/OT/cardiac rehab consulted 4. Will monitor daily labs and x-rays. Electrolyte replacement per protocol. No transfusion at this point. Will give IV lasix today 5. Insulin management per primary care service 6. Pain control with current medication regimen 7. GI/DVT prophylaxis 8. DC Hulbert. Connect Cordis to continuous CVP monitoring 9. May discontinue mediastinal chest tube, continue left pleural chest tube for another 24 hours 10. Will discontinue Roberts catheter later today. May bladder scan and straight cath for greater than 300 mL 11. More recommendations to follow based on patient's progress Time with Patient: Greater than 30
[2019-09-21] MEDS: HEPARIN SODIUM,PORCINE 5,000 UNIT/ML 1 ML VIAL SQ SCH ×2 (08:48→18:15)
[2019-09-21] MEDS: THIAMINE 100 MG TAB PO SCH ×2 (08:48→18:15)
[2019-09-21] MEDS: ASPIRIN 325 MG TAB PO SCH (08:49)
[2019-09-21] MEDS: MUPIROCIN 2% OINT 22 GM TUBE NASAL SCH ×2 (08:49→20:57)
[2019-09-21] MEDS: METOPROLOL TARTRATE 12.5 MG TAB PO SCH (08:49)
[2019-09-21] MEDS: SODIUM CHLORIDE 0.9% 1,000 ML IV SCH (08:49)
[2019-09-21] MEDS: ATORVASTATIN 40 MG TAB PO SCH (08:49)
[2019-09-21] MEDS: CLOPIDOGREL 75 MG TAB PO SCH (08:49)
[2019-09-21] MEDS: PANTOPRAZOLE 40 MG/10 ML VIAL IVP SCH (08:49)
[2019-09-21] MEDS: MULTIVITAMINS, THERA 1 EACH TAB PO SCH (08:59)
[2019-09-21] MEDS: NOREPINEPHRINE 4 MG in SODIUM CHLORIDE 0.9% 250 ML IV SCH (09:01)
[2019-09-21] MEDS ORDERED: FUROSEMIDE 10 MG/ML 2 ML VIAL IV ONE (10:03)
[2019-09-21] MEDS ORDERED: CALCIUM GLUCONATE 1 GM in SODIUM CHLORIDE 0.9% 100 ML IVPB ONE (10:04)
--- NOTE | 2019-09-21 11:35 | P.PN ---
Subjective Progress Note Date: 09/21/19 This is a 49-year-old male patient, obese, known history of hypertension and hyperlipidemia and previous history of pulmonary embolism maintained on Eliquis on outpatient basis. The patient also is daily alcohol drinker and the patient also smokes marijuana frequently. He has a positive family history for coronary artery disease. The patient had abnormal stress test is cardiac catheterization was done and the patient had a 80-90% focal stenosis to the midportion of his LAD, 80% stenosis of the regular branch and 30-40% stenosis of the RCA. Cardiac catheterization was attempted. A stent was the foot and the diagonal branch and was unsuccessful and the LAD and there was obvious compromise of the flow of the blood and LAD. Based on that, and intra-aortic balloon flow was inserted. The patient was taken for emergent cardiac revascularization surgery. This was done yesterday and the patient underwent a off pump bypass surgery 1 with GARDNER to LAD. Postop, the patient was brought into the intensive care unit. Overnight he was kept on a mechanical ventilator. I did this is a vent changes. I kept him assist-control mode at the rate of 20 with a tidal volume of 500 and the PEEP was dropped down to 8 this morning with an FiO2 down to 40%. These changes were done based on the blood gases monitoring. Meanwhile, the patient remains hemodynamically stable. This morning. The one-to-one augmentation on his intra-aortic balloon pump. He did well and he remained hemodynamically stable. Earlier this morning his pH was at 7.37 with a pCO2 of 38 and pO2 of 162. The patient had a cardiac output of 5.4 with an index of 2.2. He was on low-dose norepinephrine infusion for blood pressure support. Otherwise he was a Precedex for sedation and he was, comfortable. Chest tubes are all in place. The patient had a mediastinal chest tube to drain around 150 mL over the past 8 hours and 400 mL since surgery without evidence of any air leak. Left pleural chest tube had 100 mL over the past 8 hours and 400 mL since surgery without evidence of any air leak. On today's evaluation of 09/21/2019, the patient is extubated. The patient is postop day #2. Doing extremely well. Sitting up on a chair. No respiratory difficulties. The intra-aortic balloon pump has been removed. He still has a right IJ [place]-Tate catheter. The patient has a right pleural and left pleural and mediastinal chest tubes. Output from the chest tubes have been noted. The patient has produced 70 mL of serosanguineous drainage from the mediastinal chest tube over the past 8 hours and 350 over the past 24 hours. Output from the left pleural chest tube is around 50 mL over the past 8 hours and on the cc over the past 24 hours. His pulmonary artery pressure is 21/10. Cardiac output is at 10.4 with an index of 4.2. His cardiac rhythm is sinus. Urine output is order of 40 mL an hour. No signs of any delirium tremens. No respiratory distress. The hemoglobin stable at 8.5. The white cell count of 15.9. Objective - Vital Signs Vital signs: Vital Signs Temp 99.1 F 09/21/19 04:00 Pulse 101 H 09/21/19 11:05 Resp 23 09/21/19 07:00 BP 117/81 09/21/19 07:00 Pulse Ox 95 09/21/19 07:00 Intake & Output 09/20/19 09/21/19 09/21/19 18:59 06:59 18:59 Intake Total 8683.323 0949.686 281.711 Output Total 960 937 40 Balance 1029.987 435.686 241.711 Weight 133.9 kg Intake: IV 1438 481 29 CO/CI Injectate 715 100 IABP Pressure Bag 9 Normal Saline Pressure 144 111 9 Bag Sodium Chloride 0.9% 1, 520 270 20 000 ml @ 20 mls/hr IV . Q24H [facility] Rx#:[id number] ceFAZolin 2 gm In Sodium 50 Chloride 0.9% 50 ml @ 100 mls/hr IVPB Q8H [facility] Rx#: [id number] Intake, IV Titration 551.987 241.686 252.711 Amount Dexmedetomidine/0.9% NaCl 170.455 (Pmx) 400 mcg In Empty Bag 1 bag @ Titrate IV . Q0M [facility] Rx#:[id number] Dexmedetomidine/0.9% NaCl 100.000 (Pmx) 400 mcg In Empty Bag 1 bag @ Titrate IV . Q0M [facility] Rx#:[id number] Insulin Regular 100 unit 11.717 In Sodium Chloride 0.9% 100 ml @ Per Protocol IV .Q0M [facility] Rx#:[id number] Nitroglycerin-D5w Pmx 50 29.475 mg In Dextrose/Water 1 250ml.bag @ 5 MCG/MIN 1.5 mls/hr IV .Q24H [facility] Rx#: [id number] Norepinephrine 4 mg In 329.940 141.686 252.711 Sodium Chloride 0.9% 250 ml @ 0.05 MCG/KG/MIN 24. 136 mls/hr IV .[id number] [facility] Rx#:[id number] Propofol 1,000 mg In 10.400 Empty Bag 1 bag @ Titrate IV .Q0M ISAIAH Rx#: [id number] Oral 650 Output: Chest Tube Drainage [address] X 2 180 170 20 Urine 700 697 20 Other: Voiding Method Indwelling Catheter Indwelling Catheter ABP, PAP, CO, CI - Last Documented Arterial Blood Pressure 90/54 Pulmonary Artery Pressure 21/2 Cardiac Output 10.4 Cardiac Index 4.2 - Exam - Constitutional General appearance: Present: cooperative, no acute distress, obese - Respiratory Details: Lungs sounds diminished bilaterally. Respirations even, nonlabored. Currently on 4 L nasal cannula with oxygen saturation 92%. Able to achieve 1250 mL on his incentive spirometry. Strong cough. Mediastinal chest tube present to continuous wall suction, 70 milliliters serosanguineous drainage overnight, 350 ml in the last 24 hours, no air leak present. Left pleural chest tube to continuous wall suction, 50 ml serosanguineous drainage overnight, 200 ml in the last 24 hours, no air leak present. - Cardiovascular Details: S1, S2 present. Tachycardic but regular rate and rhythm, sinus tach on telemetry. Sternum stable. Right internal jugular [place]/Cordis, right radial arterial line present. Last CO/CI 10.4/4.2 on low-dose IV Levophed. Trace lower extremity edema present. Palpable peripheral pulses bilaterally. No calf pain or tenderness noted. Heart hugger in place with patient demonstrating appropriate use. Antiembolism stockings, SCDs present. - Gastrointestinal Gastrointestinal Comment(s): Abdomen soft, nontender, nondistended. Hypoactive bowel sounds present 4 quadrants. Tolerating full liquids. Negative flatus, positive belching - Genitourinary Genitourinary Comment(s): Roberts present draining clear, yellow urine. Output 45-205 mL per hour overnight - Integumentary Integumentary Comment(s): Skin is warm and dry with evidence of good perfusion. Anterior chest incision well approximated and covered with dry intact dressing. - Neurologic Neurologic: Present: CNII-XII intact - Musculoskeletal Musculoskeletal: Present: gait normal, strength equal bilaterally - Labs CBC & Chem 7: 09/21/19 04:26 09/21/19 04:26 Labs: Abnormal Lab Results - Last 24 Hours (Table) 09/19/19 09/20/19 09/20/19 Range/Units 10:10 11:22 13:05 WBC (3.8-10.6) k/uL RBC (4.30-5.90) m/uL Hgb (13.0-17.5) gm/dL Hct (39.0-53.0) % Neutrophils # (Manual) (1.3-7.7) k/uL Lymphocytes # (Manual) (1.0-4.8) k/uL Monocytes # (Manual) (0-1.0) k/uL ABG O2 Saturation (94-97) % Sodium (137-145) mmol/L Carbon Dioxide (22-30) mmol/L Glucose (74-99) mg/dL POC Glucose (mg/dL) 119 H 122 H (75-99) mg/dL Calcium (8.4-10.2) mg/dL Total Protein (6.3-8.2) g/dL Albumin (3.5-5.0) g/dL Crossmatch See Detail 09/20/19 09/20/19 09/20/19 Range/Units 13:47 13:57 15:29 WBC (3.8-10.6) k/uL RBC (4.30-5.90) m/uL Hgb (13.0-17.5) gm/dL Hct (39.0-53.0) % Neutrophils # (Manual) (1.3-7.7) k/uL Lymphocytes # (Manual) (1.0-4.8) k/uL Monocytes # (Manual) (0-1.0) k/uL ABG O2 Saturation 98.3 H (94-97) % Sodium (137-145) mmol/L Carbon Dioxide (22-30) mmol/L Glucose (74-99) mg/dL POC Glucose (mg/dL) 115 H 107 H (75-99) mg/dL Calcium (8.4-10.2) mg/dL Total Protein (6.3-8.2) g/dL Albumin (3.5-5.0) g/dL Crossmatch 09/20/19 09/20/19 09/20/19 Range/Units 16:22 18:15 19:13 WBC (3.8-10.6) k/uL RBC (4.30-5.90) m/uL Hgb (13.0-17.5) gm/dL Hct (39.0-53.0) % Neutrophils # (Manual) (1.3-7.7) k/uL Lymphocytes # (Manual) (1.0-4.8) k/uL Monocytes # (Manual) (0-1.0) k/uL ABG O2 Saturation (94-97) % Sodium (137-145) mmol/L Carbon Dioxide (22-30) mmol/L Glucose (74-99) mg/dL POC Glucose (mg/dL) 114 H 114 H 113 H (75-99) mg/dL Calcium (8.4-10.2) mg/dL Total Protein (6.3-8.2) g/dL Albumin (3.5-5.0) g/dL Crossmatch 09/20/19 09/20/19 09/21/19 Range/Units 20:38 22:25 00:45 WBC (3.8-10.6) k/uL RBC (4.30-5.90) m/uL Hgb (13.0-17.5) gm/dL Hct (39.0-53.0) % Neutrophils # (Manual) (1.3-7.7) k/uL Lymphocytes # (Manual) (1.0-4.8) k/uL Monocytes # (Manual) (0-1.0) k/uL ABG O2 Saturation (94-97) % Sodium (137-145) mmol/L Carbon Dioxide (22-30) mmol/L Glucose (74-99) mg/dL POC Glucose (mg/dL) 100 H 122 H 120 H (75-99) mg/dL Calcium (8.4-10.2) mg/dL Total Protein (6.3-8.2) g/dL Albumin (3.5-5.0) g/dL Crossmatch 09/21/19 09/21/19 09/21/19 Range/Units 02:21 04:26 04:26 WBC 15.9 H (3.8-10.6) k/uL RBC 2.82 L (4.30-5.90) m/uL Hgb 8.5 L (13.0-17.5) gm/dL Hct 25.2 L (39.0-53.0) % Neutrophils # (Manual) 12.40 H (1.3-7.7) k/uL Lymphocytes # (Manual) 0.64 L (1.0-4.8) k/uL Monocytes # (Manual) 2.86 H (0-1.0) k/uL ABG O2 Saturation (94-97) % Sodium 135 L (137-145) mmol/L Carbon Dioxide 21 L (22-30) mmol/L Glucose 107 H (74-99) mg/dL POC Glucose (mg/dL) 123 H (75-99) mg/dL Calcium 8.0 L (8.4-10.2) mg/dL Total Protein 5.4 L (6.3-8.2) g/dL Albumin 3.2 L (3.5-5.0) g/dL Crossmatch 09/21/19 09/21/19 Range/Units 04:26 06:56 WBC (3.8-10.6) k/uL RBC (4.30-5.90) m/uL Hgb (13.0-17.5) gm/dL Hct (39.0-53.0) % Neutrophils # (Manual) (1.3-7.7) k/uL Lymphocytes # (Manual) (1.0-4.8) k/uL Monocytes # (Manual) (0-1.0) k/uL ABG O2 Saturation (94-97) % Sodium (137-145) mmol/L Carbon Dioxide (22-30) mmol/L Glucose (74-99) mg/dL POC Glucose (mg/dL) 123 H 123 H (75-99) mg/dL Calcium (8.4-10.2) mg/dL Total Protein (6.3-8.2) g/dL Albumin (3.5-5.0) g/dL Crossmatch Assessment and Plan Plan: 1 coronary artery bypass surgery. The patient had a emergent off-pump GARDNER to LAD and the patient is currently postop day #2. Hemodynamically stable. Intra- aortic pump was removed and the patient was extubated without any major difficulties. Norepinephrine infusion was also weaned off and discontinued today. He has an adequate urine output. No pressors for now. 2 post thoracotomy, extubated and chest tubes are still in place and output has been noted. 3 obesity with a BMI of 40 4 hypertension history of 5 hyperlipidemia history of 6 history of pulmonary embolism unknown to coagulation for now 7 history of alcohol use 8 history of marijuana use 9 postoperative acute blood loss anemia, hemoglobin is stable for now. The hemoglobin today's at 8.5. Plan Currently on 4 L of oxygen by nasal cannula. May discontinue the [place]-Tate catheter. Levo fed has been discontinued Pulmonary toileting and use of incentive spirometer. Insulin management for blood sugar control. Chest x-ray was reviewed and there is no significant abnormalities in his consistent with postsurgical changes. Continue aspirin and Plavix and metoprolol. Watch for any signs of delirium tremens. We'll continue to follow.
[2019-09-21 11:51] LABS: Glucose,Whole Blood 117 mg/dL (75-99)
--- NOTE | 2019-09-21 12:09 | PN ---
PROGRESS NOTE This patient's electronic medical records reviewed and condition discussed with the patient's nurse. The patient remained stable hemodynamically. No dysrhythmias are noted. Blood pressure is 100/60 mmHg, heart rate is 100 per minute. First and second heart sounds are heard. Lungs are clinically clear to auscultation and percussion except a few scattered wheezes. LABORATORY DATA: Hemoglobin is 8.5, creatinine 0.81. Continue the current medications. MMODL / IJN: [id number] /
[2019-09-21] MEDS ORDERED: ACETAMINOPHEN TAB 500 MG TAB PO PRN (12:57)
[2019-09-21 14:02] VITALS: BMI 40.0
[2019-09-21] MEDS ORDERED: LORazepam 2 MG/ML INJ IV PRN (16:17)
[2019-09-21 16:35] LABS: Glucose,Whole Blood 97 mg/dL (75-99)
--- NOTE | 2019-09-21 17:15 | PN ---
PROGRESS NOTE DATE OF SERVICE: 09/21/2019 This 49-year-old gentleman who was admitted with CAD, CABG is being closely monitored. The patient is extubated. No chest pain. No palpitations. No fever. The most recent chest x-ray which was reviewed by me showed postsurgical changes. EXAM: Alert and oriented x3. Pulse is 100, blood pressure 90/50, respiration 23, temperature normal, pulse ox 94% on 4 L. HEENT: Conjunctivae normal. Oral mucosa moist. NECK: No jugular venous distention. No lymph node enlargement. CARDIOVASCULAR: S1, S2. RESPIRATORY: Diminished breath sounds at the bases. Scattered rhonchi. ABDOMEN: Soft, nontender. LEGS: No edema, no swelling. NERVOUS SYSTEM: No focal deficits. LABS: WBC 15.2, hemoglobin 10.2, sodium 135. ASSESSMENT: 1. Coronary artery disease status post coronary artery bypass graft with GARDNER to LAD. 2. Hypertension. 3. Hyperlipidemia. 4. History of pulmonary embolism. 5. History of ETOH. 6. History of obesity with body mass index of 37.9. RECOMMENDATIONS AND DISCUSSION: I recommend to continue current medications, continue to monitor, symptomatic treatment. Otherwise, at this time I recommend continue with the current medications, DVT prophylax and incentive spirometry. Also, recommend for Cardiothoracic Surgeon and Pulmonology to follow. Further recommendations to follow. MMGUIDOL / RANDOLPHN: [id number] /
[2019-09-21] MEDS: INSULIN ASPART (NovoLOG) 100 UNIT/ML VIAL SQ SCH ×2 (19:14→20:56)
[2019-09-21] MEDS: CHLORHEXIDINE GLUCONATE 15 ML CUP MUCOUS MEM SCH (19:33)
[2019-09-21 20:29] LABS: Glucose,Whole Blood 137 mg/dL (75-99)
[2019-09-21] MEDS: SENNOSIDES-DOCUSATE SODIUM 1 EACH TAB PO SCH (20:58)
[2019-09-21] MEDS ORDERED: METOPROLOL TARTRATE 25 MG TAB PO SCH (21:00)
[2019-09-22] MEDS: HEPARIN SODIUM,PORCINE 5,000 UNIT/ML 1 ML VIAL SQ SCH ×4 (00:24→23:49)
[2019-09-22] MEDS: KETOROLAC 30 MG/ML 1 ML VIAL IVP SCH ×5 (00:32→23:49)
[2019-09-22 01:58] LABS: Glucose,Whole Blood 122 mg/dL (75-99)
[2019-09-22] MEDS: INSULIN ASPART (NovoLOG) 100 UNIT/ML VIAL SQ SCH ×5 (02:29→20:47)
[2019-09-22 04:59] LABS: Basophils % (A) 0 %; Eosinophils # (A) 0.2 k/uL (0-0.7); Eosinophils % (A) 2 %; HCT 22.8 % (39.0-53.0); HGB 7.7 gm/dL (13.0-17.5); Lymphocytes % (A) 9 %; MCH 30.3 pg (25.0-35.0); MCHC 33.5 g/dL (31.0-37.0); MCV 90.4 fL (80.0-100.0); Mean Platelet Volume 7.5; Monocytes % (A) 19 %; Neutrophils # (A) 7.5 k/uL (1.3-7.7); Neutrophils % (A) 70 %; Platelet Count 185 k/uL (150-450); RBC 2.52 m/uL (4.30-5.90); RDW 12.7 % (11.5-15.5); WBC 10.8 k/uL (3.8-10.6)
[2019-09-22 05:09] LABS: ALT 12 U/L (4-49); AST 25 U/L (17-59); African American GFR (CKD) >90 (>60 ml/min/1.73 sqM); Alkaline Phosphatase 43 U/L (38-126); Anion Gap 5 mmol/L; Blood Urea Nitrogen 16 mg/dL (9-20); Calcium 7.9 mg/dL (8.4-10.2); Carbon Dioxide 27 mmol/L (22-30); Chloride 104 mmol/L (98-107); Glucose 98 mg/dL (74-99); Non-African American GFR(CKD) >90 (>60 ml/min/1.73 sqM); Potassium 3.7 mmol/L (3.5-5.1); Sodium 136 mmol/L (137-145); Total Bilirubin 0.6 mg/dL (0.2-1.3); Total Protein 5.4 g/dL (6.3-8.2)
[2019-09-22 06:50] LABS: Glucose,Whole Blood 117 mg/dL (75-99)
[2019-09-22] MEDS ORDERED: CALCIUM GLUCONATE 1 GM in SODIUM CHLORIDE 0.9% 100 ML IVPB ONE (07:00)
[2019-09-22] MEDS ORDERED: POTASSIUM CHLORIDE ER 20 MEQ TAB.ER PO SCH (07:00)
--- NOTE | 2019-09-22 07:31 | P.PN ---
Subjective Progress Note Date: 09/22/19 Principal diagnosis: Coronary artery disease status post PCI stenting of the diagonal artery with compromised LAD, unstable angina, inability to fix the LAD, preoperative placement of intra-aortic balloon pump, preoperative Effient intake. Previous medical history of hypertension, hyperlipidemia, pulmonary embolus on no anticoagulation, daily EtOH use, marijuana use, obesity, and family history of premature coronary artery disease. POD #3 emergency beating heart single-vessel coronary artery bypass grafting using the left internal mammary artery to the left anterior descending artery. Intraoperative transesophageal echocardiogram and epi-aortic scanning. Intraoperative graft flow measurements using the Medistim system. Postoperative acute blood loss anemia, expected outcome of surgery. Postoperative hypotension, expected outcome The patient is currently sitting up in a recliner in the intensive care unit in no acute distress. States postoperative pain is controlled with current medication regimen, denies shortness of breath. Remains in normal sinus rhythm and hemodynamically stable on on no inotropes or pressors. Ambulatory in the hallway this morning. No new concerns. Objective - Vital Signs Vital signs: Vital Signs Temp 98.4 F 09/22/19 04:00 Pulse 104 H 09/22/19 06:00 Resp 24 09/22/19 06:00 BP 126/85 09/22/19 06:00 Pulse Ox 94 L 09/22/19 06:00 Intake & Output 09/21/19 09/22/19 09/22/19 18:59 06:59 18:59 Intake Total 1892.711 726 23 Output Total 1710 505 20 Balance 182.711 221 3 Weight 133.9 kg 129.6 kg Intake: IV 340 276 23 CO/CI Injectate 20 Normal Saline Pressure 60 36 3 Bag Sodium Chloride 0.9% 1, 260 240 20 000 ml @ 20 mls/hr IV . Q24H [facility] Rx#:[id number] Intake, IV Titration 352.711 Amount Calcium Gluconate 1 gm In 100 Sodium Chloride 0.9% 100 ml @ 100 mls/hr IVPB ONCE ONE Rx#:[id number] Norepinephrine 4 mg In 252.711 Sodium Chloride 0.9% 250 ml @ 0.05 MCG/KG/MIN 24. 136 mls/hr IV .[id number] [facility] Rx#:[id number] Oral 1200 450 Output: Chest Tube Drainage [address] X 2 50 Urine 1610 255 0 Other: Voiding Method Indwelling Catheter Urinal ABP, PAP, CO, CI - Last Documented Arterial Blood Pressure 93/79 Pulmonary Artery Pressure 27/7 Cardiac Output 8.3 Cardiac Index 3.4 - Constitutional General appearance: Present: cooperative, no acute distress, obese - Respiratory Details: Lungs sounds diminished bilaterally. Respirations even, nonlabored. Currently on 2 L nasal cannula with oxygen saturation 100%. Able to achieve 5577-2074 mL on his incentive spirometry. Strong cough. Left pleural chest tube to continuous wall suction, 120 ml thin serosanguineous drainage overnight, 300 ml in the last 24 hours, no air leak present. - Cardiovascular Details: S1, S2 present. Tachycardic but regular rate and rhythm, sinus tach on telemetry. Sternum stable. Right internal jugular Cordis present. Trace generalized edema present. Palpable peripheral pulses bilaterally. No calf pain or tenderness noted. Heart hugger in place with patient demonstrating appropriate use. Antiembolism stockings, SCDs present. - Gastrointestinal Gastrointestinal Comment(s): Abdomen soft, nontender, nondistended. Active bowel sounds present 4 quadrants. Tolerating diet. Positive flatus - Genitourinary Genitourinary Comment(s): Roberts discontinued yesterday, patient has voided clear yellow urine - Integumentary Integumentary Comment(s): Skin is warm and dry with evidence of good perfusion. Anterior chest incision well approximated and covered with dry intact dressing. - Neurologic Neurologic: Present: CNII-XII intact - Musculoskeletal Musculoskeletal: Present: gait normal, strength equal bilaterally - Psychiatric Psychiatric: Present: A&O x's 3, appropriate affect, intact judgment & insight - Allied health notes Allied health notes reviewed: nursing - Labs CBC & Chem 7: 09/22/19 04:47 09/22/19 04:47 Labs: Abnormal Lab Results - Last 24 Hours (Table) 09/21/19 09/21/19 09/22/19 Range/Units 11:49 20:27 01:57 WBC (3.8-10.6) k/uL RBC (4.30-5.90) m/uL Hgb (13.0-17.5) gm/dL Hct (39.0-53.0) % Monocytes # (0-1.0) k/uL Sodium (137-145) mmol/L POC Glucose (mg/dL) 117 H 137 H 122 H (75-99) mg/dL Calcium (8.4-10.2) mg/dL Total Protein (6.3-8.2) g/dL Albumin (3.5-5.0) g/dL 09/22/19 09/22/19 09/22/19 Range/Units 04:47 04:47 06:48 WBC 10.8 H (3.8-10.6) k/uL RBC 2.52 L (4.30-5.90) m/uL Hgb 7.7 L (13.0-17.5) gm/dL Hct 22.8 L (39.0-53.0) % Monocytes # 2.0 H (0-1.0) k/uL Sodium 136 L (137-145) mmol/L POC Glucose (mg/dL) 117 H (75-99) mg/dL Calcium 7.9 L (8.4-10.2) mg/dL Total Protein 5.4 L (6.3-8.2) g/dL Albumin 3.0 L (3.5-5.0) g/dL - Imaging and Cardiology Chest x-ray: image reviewed Assessment and Plan Assessment: 1. Coronary artery disease, unstable angina, preoperative placement of intra- aortic balloon pump, status post emergent off-pump CABG 1 2. History of hypertension, currently hypotensive on IV Levophed 3. Hyperlipidemia 4. History of pulmonary embolus on no anticoagulation 5. Daily EtOH use 6. Marijuana use 7. Obesity 8. Family history of premature coronary artery disease 9. Postoperative acute blood loss anemia Plan: 1. Continue aspirin, statin, Plavix, beta taco therapy. Will increase beta taco as tolerated. 2. Wean O2 as tolerated. Encourage incentive spirometry 10 times every hour wh ile awake. Bronchodilators per pulmonology 3. Increase activity as tolerated. PT/OT/cardiac rehab consulted 4. Will monitor daily labs and x-rays. Electrolyte replacement per protocol. No transfusion at this point. 5. Insulin management per primary care service 6. Pain control with current medication regimen 7. GI/DVT prophylaxis 8. DC cordis 9. Will discontinue left pleural chest tube 10. Will place transfer orders for 3S cardiac step down. May transfer when bed available 11. Discharge planning in progress. Anticipate DC to home with home care in the next 24-48 hours 12. More recommendations to follow based on patient's progress Time with Patient: Greater than 30
--- NOTE | 2019-09-22 07:42 | XR ---
EXAMINATION TYPE: XR chest 1V portable DATE OF EXAM: 09/22/2019 COMPARISON: 09/21/2019 HISTORY: Post CABG change. TECHNIQUE: Single frontal view of the chest is obtained. FINDINGS: Left basilar opacity is slightly improved from the prior with blunting of the left costoph renic angle. Blunting of the right costophrenic angle is also seen. Left perihilar linear atelectasis . Enlarged cardiac mediastinal silhouette is exaggerated by low lung volumes with post CABG change. N o acute osseous process. IMPRESSION: Trace pleural effusions and improving retrocardiac airspace disease, possible atelectasi s or less likely pneumonia.
[2019-09-22] MEDS: IPRATROPIUM-ALBUTEROL 3 ML NEB INHALATION SCH ×4 (07:43→19:33)
[2019-09-22] MEDS: FERROUS SULFATE 325 MG TAB PO SCH ×2 (08:03→16:52)
[2019-09-22] MEDS: HYDROcodone/APAP 5-325MG 1 EACH TAB PO PRN (08:04)
[2019-09-22] MEDS: THIAMINE 100 MG TAB PO SCH ×2 (08:04→16:52)
[2019-09-22] MEDS: MULTIVITAMINS, THERA 1 EACH TAB PO SCH (08:04)
[2019-09-22] MEDS: ASPIRIN 325 MG TAB PO SCH (08:04)
[2019-09-22] MEDS: ASCORBIC ACID 500 MG TAB PO SCH ×2 (08:04→16:52)
[2019-09-22] MEDS: ATORVASTATIN 40 MG TAB PO SCH (08:04)
[2019-09-22] MEDS: CLOPIDOGREL 75 MG TAB PO SCH (08:04)
[2019-09-22] MEDS: PANTOPRAZOLE 40 MG TABLET PO SCH (08:04)
[2019-09-22] MEDS: METOPROLOL TARTRATE 50 MG TAB PO SCH ×2 (08:04→20:46)
[2019-09-22] MEDS: MUPIROCIN 2% OINT 22 GM TUBE NASAL SCH ×2 (08:04→20:47)
[2019-09-22] MEDS: SODIUM CHLORIDE 0.9% 1,000 ML IV SCH (08:21)
--- NOTE | 2019-09-22 11:31 | PN ---
PROGRESS NOTE This patient's medical records reviewed. The patient's condition discussed with the nurse and the patient's chart reviewed. Patient is status post coronary artery bypass surgery. He is comfortable. No dysrhythmias are noted. The patient has a low-grade fever. First and second heart sounds are heard. Lungs are clinically clear to auscultation and percussion. Patient's medications are reviewed. Electrolytes, BUN and creatinine are normal. Continue the current medications. MMODL / IJN: [id number] /
[2019-09-22 11:51] LABS: Glucose,Whole Blood 114 mg/dL (75-99)
--- NOTE | 2019-09-22 12:13 | P.PN ---
Subjective Progress Note Date: 09/22/19 Principal diagnosis: Status post CABG, postoperative day #3. This is a 49-year-old male patient, obese, known history of hypertension and hyperlipidemia and previous history of pulmonary embolism maintained on Eliquis on outpatient basis. The patient also is daily alcohol drinker and the patient also smokes marijuana frequently. He has a positive family history for coronary artery disease. The patient had abnormal stress test is cardiac catheterization was done and the patient had a 80-90% focal stenosis to the midportion of his LAD, 80% stenosis of the regular branch and 30-40% stenosis of the RCA. Cardiac catheterization was attempted. A stent was the foot and the diagonal branch and was unsuccessful and the LAD and there was obvious compromise of the flow of the blood and LAD. Based on that, and intra-aortic balloon flow was inserted. The patient was taken for emergent cardiac revascularization surgery. This was done yesterday and the patient underwent a off pump bypass surgery 1 with GARDNER to LAD. Postop, the patient was brought into the intensive care unit. Overnight he was kept on a mechanical ventilator. I did this is a vent changes. I kept him assist-control mode at the rate of 20 with a tidal volume of 500 and the PEEP was dropped down to 8 this morning with an FiO2 down to 40%. These changes were done based on the blood gases monitoring. Meanwhile, the patient remains hemodynamically stable. This morning. The one-to-one augmentation on his intra-aortic balloon pump. He did well and he remained hemodynamically stable. Earlier this morning his pH was at 7.37 with a pCO2 of 38 and pO2 of 162. The patient had a cardiac output of 5.4 with an index of 2.2. He was on low-dose norepinephrine infusion for blood pressure support. Otherwise he was a Precedex for sedation and he was, comfortable. Chest tubes are all in place. The patient had a mediastinal chest tube to drain around 150 mL over the past 8 hours and 400 mL since surgery without evidence of any air leak. Left pleural chest tube had 100 mL over the past 8 hours and 400 mL since surgery without evidence of any air leak. On today's evaluation of 09/21/2019, the patient is extubated. The patient is postop day #2. Doing extremely well. Sitting up on a chair. No respiratory difficulties. The intra-aortic balloon pump has been removed. He still has a right IJ Highland-Tate catheter. The patient has a right pleural and left pleural and mediastinal chest tubes. Output from the chest tubes have been noted. The patient has produced 70 mL of serosanguineous drainage from the mediastinal chest tube over the past 8 hours and 350 over the past 24 hours. Output from the left pleural chest tube is around 50 mL over the past 8 hours and on the cc over the past 24 hours. His pulmonary artery pressure is 21/10. Cardiac output is at 10.4 with an index of 4.2. His cardiac rhythm is sinus. Urine output is order of 40 mL an hour. No signs of any delirium tremens. No respiratory distress. The hemoglobin stable at 8.5. The white cell count of 15.9. Reevaluated today on 09/22/19, patient is now postoperative #3. Sitting at a bedside recliner, doing well, relatively asymptomatic. Denies any shortness of breath, denies any significant pain, patient is hemodynamically stable not requiring any inotropes or any pressors. Has been ambulating with assistance in the hallway. Chest x-ray is reassuring. It did show trace pleural effusions and retrocardiac atelectasis, as expected considering his surgery Objective - Vital Signs Vital signs: Vital Signs Temp 98.4 F 09/22/19 08:00 Pulse 96 09/22/19 11:53 Resp 18 09/22/19 11:00 BP 121/76 09/22/19 11:00 Pulse Ox 96 09/22/19 11:00 Intake & Output 09/21/19 09/22/19 09/22/19 18:59 06:59 18:59 Intake Total 1892.711 726 115 Output Total 1710 505 370 Balance 182.711 221 -255 Weight 133.9 kg 129.6 kg Intake: IV 340 276 115 CO/CI Injectate 20 Normal Saline Pressure 60 36 15 Bag Sodium Chloride 0.9% 1, 260 240 100 000 ml @ 20 mls/hr IV . Q24H [facility] Rx#:[id number] Intake, IV Titration 352.711 Amount Calcium Gluconate 1 gm In 100 Sodium Chloride 0.9% 100 ml @ 100 mls/hr IVPB ONCE ONE Rx#:[id number] Norepinephrine 4 mg In 252.711 Sodium Chloride 0.9% 250 ml @ 0.05 MCG/KG/MIN 24. 136 mls/hr IV .[id number] [facility] Rx#:[id number] Oral 1200 450 Output: Chest Tube Drainage [address] X 2 50 Urine 1610 255 350 Other: Voiding Method Indwelling Catheter Urinal Urinal ABP, PAP, CO, CI - Last Documented Arterial Blood Pressure 93/79 Pulmonary Artery Pressure 27/7 Cardiac Output 8.3 Cardiac Index 3.4 - Exam Physical Exam: Revealed 49-year-old white male in no distress. Head: Atraumatic, normocephalic. HEENT:[Neck is supple.] [No neck masses.] [No thyromegaly.] [No JVD.] Chest: [Diminished breath sound bilaterally, left sided pleural chest tube continues to wall suction with minimal serosanguineous drainage overnight 300 mL in the last 24 hours, no air leak. Cardiac Exam: [Normal S1 and S2, no S3 gallop, no murmur.] Abdomen: [Soft, nontender, no megaly, no rebound, no guarding, normal bowel sounds.] Extremities: [No clubbing, no edema, no cyanosis.] Neurological Exam: [No focal neurologic deficit.] Alert and oriented 3. Psychiatric: Normal mood affect and normal mental status examination. Skin: No rashes. - Labs CBC & Chem 7: 09/22/19 04:47 09/22/19 04:47 Labs: Abnormal Lab Results - Last 24 Hours (Table) 09/21/19 09/22/19 09/22/19 Range/Units 20:27 01:57 04:47 WBC 10.8 H (3.8-10.6) k/uL RBC 2.52 L (4.30-5.90) m/uL Hgb 7.7 L (13.0-17.5) gm/dL Hct 22.8 L (39.0-53.0) % Monocytes # 2.0 H (0-1.0) k/uL Sodium (137-145) mmol/L POC Glucose (mg/dL) 137 H 122 H (75-99) mg/dL Calcium (8.4-10.2) mg/dL Total Protein (6.3-8.2) g/dL Albumin (3.5-5.0) g/dL 09/22/19 09/22/19 09/22/19 Range/Units 04:47 06:48 11:45 WBC (3.8-10.6) k/uL RBC (4.30-5.90) m/uL Hgb (13.0-17.5) gm/dL Hct (39.0-53.0) % Monocytes # (0-1.0) k/uL Sodium 136 L (137-145) mmol/L POC Glucose (mg/dL) 117 H 114 H (75-99) mg/dL Calcium 7.9 L (8.4-10.2) mg/dL Total Protein 5.4 L (6.3-8.2) g/dL Albumin 3.0 L (3.5-5.0) g/dL Assessment and Plan Assessment: Impression: Status post CABG postoperative day #1, off pump, CABG 1 Postoperative atelectasis and pleural effusion, expected. History of hypertension, presently blood pressures under control. History of pulmonary embolism History of alcohol use Family history of premature coronary artery disease. Recommendation: Continue beta blockers Plavix statin and aspirin. Continue incentive spirometry. Wean O2 as tolerated. Continue bronchodilators. Continue ambulation. Continue pain control. Continue GI and DVT prophylaxis. Discontinue unnecessary lines and catheters. We'll continue to follow. Time with Patient: Less than 30
[2019-09-22 16:43] LABS: Glucose,Whole Blood 90 mg/dL (75-99)
--- NOTE | 2019-09-22 19:52 | PN ---
PROGRESS NOTE DATE OF SERVICE: 09/22/2019 This is 49-year-old gentleman who was admitted after CAD, CABG is improving significantly. No chest pain. No palpitations. No fever. The most recent chest x- ray shows some trace pleural effusion and possibly atelectasis. No chest pain. No palpitations. No fever. PHYSICAL EXAMINATION: Alert and oriented x3. Pulse is 94, blood pressure 124/70, respirations 26, temperature normal, pulse ox 94% on 2 L. HEENT is conjunctivae normal. NECK: No JVD. CARDIOVASCULAR: S1, S2 muffled. RESPIRATIONS: Breath sounds diminished in the bases. Scattered rhonchi. ABDOMEN: Soft, nontender. LEGS are no edema. No swelling. CENTRAL NERVOUS SYSTEM: No focal deficits. LABS: WBC 10.9, hemoglobin 7.7, sodium is 136. ASSESSMENT: 1. Coronary artery disease status post coronary artery bypass grafting and GARDNER to LAD. 2. Hypertension. 3. Hyperlipidemia. 4. History of pulmonary embolism. 5. History of EtOH. 6. History of obesity with body mass of 37. RECOMMENDATIONS AND DISCUSSION: Recommend to continue current medications, recommend to continue symptomatic treatment, current management. Monitor blood sugars closely. Insulin scale. We will continue to monitor. The rest of the recommendations per cardiothoracic surgery. Further recommendations to follow. MMODL / IJN: [id number] /
[2019-09-22 20:29] LABS: Glucose,Whole Blood 105 mg/dL (75-99)
[2019-09-22] MEDS: SENNOSIDES-DOCUSATE SODIUM 1 EACH TAB PO SCH (20:47)
[2019-09-23] MEDS: INSULIN ASPART (NovoLOG) 100 UNIT/ML VIAL SQ SCH ×3 (02:36→12:36)
[2019-09-23 06:33] LABS: HCT 23.5 % (39.0-53.0); HGB 7.7 gm/dL (13.0-17.5); MCH 30.1 pg (25.0-35.0); MCHC 32.6 g/dL (31.0-37.0); MCV 92.1 fL (80.0-100.0); Mean Platelet Volume 7.7; Platelet Count 268 k/uL (150-450); RBC 2.55 m/uL (4.30-5.90); RDW 12.9 % (11.5-15.5); WBC 8.6 k/uL (3.8-10.6)
[2019-09-23 06:37] LABS: Glucose,Whole Blood 106 mg/dL (75-99)
--- NOTE | 2019-09-23 06:40 | XR ---
EXAMINATION TYPE: XR chest 2V DATE OF EXAM: 09/23/2019 COMPARISON: Chest x-ray one day earlier and older studies. HISTORY: Post open cardiac surgery. TECHNIQUE: Frontal and lateral views of the chest are obtained. FINDINGS: Overlying sternal wires and mediastinal clips redemonstrated. Persisting cardiomegaly with mild central vascular congestion and interstitial edema. No large pleural effusions identified on lat eral view. Low lung volumes redemonstrated. No new focal infiltrate or pneumothorax bilaterally. Osse ous structures are intact. Overlying EKG leads redemonstrated. IMPRESSION: Low lung volumes and cardiomegaly with mild central vascular congestion and interstitial edema all redemonstrated.
[2019-09-23 06:43] LABS: African American GFR (CKD) >90 (>60 ml/min/1.73 sqM); Anion Gap 8 mmol/L; Blood Urea Nitrogen 14 mg/dL (9-20); Calcium 8.2 mg/dL (8.4-10.2); Carbon Dioxide 24 mmol/L (22-30); Chloride 108 mmol/L (98-107); Glucose 104 mg/dL (74-99); Non-African American GFR(CKD) >90 (>60 ml/min/1.73 sqM); Potassium 3.7 mmol/L (3.5-5.1); Sodium 140 mmol/L (137-145)
[2019-09-23] MEDS ORDERED: FUROSEMIDE 10 MG/ML 2 ML VIAL IV ONE (06:43)
[2019-09-23] MEDS ORDERED: LORATADINE 10 MG TAB PO PRN (06:43)
[2019-09-23] MEDS ORDERED: POTASSIUM CHLORIDE ER 20 MEQ TAB.ER PO STA (06:52)
[2019-09-23] MEDS: PANTOPRAZOLE 40 MG TABLET PO SCH (06:55)
[2019-09-23] MEDS: FERROUS SULFATE 325 MG TAB PO SCH (06:55)
[2019-09-23] MEDS: KETOROLAC 30 MG/ML 1 ML VIAL IVP SCH ×2 (06:55→12:40)
[2019-09-23] MEDS: ASCORBIC ACID 500 MG TAB PO SCH (06:55)
[2019-09-23] MEDS: THIAMINE 100 MG TAB PO SCH (06:55)
--- NOTE | 2019-09-23 07:24 | P.PN ---
Subjective Progress Note Date: 09/23/19 Principal diagnosis: Coronary artery disease status post PCI stenting of the diagonal artery with compromised LAD, unstable angina, inability to fix the LAD, preoperative placement of intra-aortic balloon pump, preoperative Effient intake. Previous medical history of hypertension, hyperlipidemia, pulmonary embolus on no anticoagulation, daily EtOH use, marijuana use, obesity, and family history of premature coronary artery disease. POD #4 emergency beating heart single-vessel coronary artery bypass grafting using the left internal mammary artery to the left anterior descending artery. Intraoperative transesophageal echocardiogram and epi-aortic scanning. Intraoperative graft flow measurements using the Medistim system. Postoperative acute blood loss anemia, expected outcome of surgery. Postoperative hypotension, expected outcome The patient is currently sitting up in a recliner in the intensive care unit in no acute distress. States postoperative pain is controlled with current medication regimen, denies shortness of breath. He does complain of post-nasal drip. Remains in normal sinus rhythm and hemodynamically stable on on no inotropes or pressors. Ambulatory in the hallway, already had shower this morning. Transfer orders placed yesterday for 3S, no beds available. No new concerns. Objective - Vital Signs Vital signs: Vital Signs Temp 98.0 F 09/23/19 04:00 Pulse 93 09/23/19 06:00 Resp 22 09/23/19 06:00 BP 138/89 09/23/19 06:00 Pulse Ox 97 09/23/19 05:00 Intake & Output 09/22/19 09/23/19 09/23/19 18:59 06:59 18:59 Intake Total 115 100 Output Total 970 850 Balance -855 -750 Weight 132.6 kg Intake: IV 115 Normal Saline Pressure 15 Bag Sodium Chloride 0.9% 1, 100 000 ml @ 20 mls/hr IV . Q24H [facility] Rx#:[id number] Oral 100 Output: Chest Tube Drainage [address] 20 Urine 950 850 Other: Voiding Method Urinal Urinal # Voids 1 ABP, PAP, CO, CI - Last Documented Arterial Blood Pressure 93/79 Pulmonary Artery Pressure 27/7 Cardiac Output 8.3 Cardiac Index 3.4 - Constitutional General appearance: Present: cooperative, no acute distress, obese - Respiratory Details: Lungs sounds diminished bilaterally. Respirations even, nonlabored. Currently on room air with oxygen saturation 97%. Able to achieve 1750 mL on his incentive spirometry. Strong cough. - Cardiovascular Details: S1, S2 present. Tachycardic but regular rate and rhythm, sinus tach on telemetry. Sternum stable. Trace generalized edema present. Palpable peripheral pulses bilaterally. No calf pain or tenderness noted. Heart hugger in place with patient demonstrating appropriate use. Antiembolism stockings, SCDs present. - Gastrointestinal Gastrointestinal Comment(s): Abdomen soft, nontender, nondistended. Active bowel sounds present 4 quadrants. Tolerating diet. Positive flatus - Genitourinary Genitourinary Comment(s): Continues to void clear, yellow urine - Integumentary Integumentary Comment(s): Skin is warm and dry with evidence of good perfusion. Anterior chest incision well approximated and covered with dry intact dressing. - Neurologic Neurologic: Present: CNII-XII intact - Musculoskeletal Musculoskeletal: Present: gait normal, strength equal bilaterally - Psychiatric Psychiatric: Present: A&O x's 3, appropriate affect, intact judgment & insight - Allied health notes Allied health notes reviewed: nursing - Labs CBC & Chem 7: 09/23/19 06:15 09/23/19 06:15 Labs: Abnormal Lab Results - Last 24 Hours (Table) 09/22/19 09/22/19 09/23/19 Range/Units 11:45 20:26 06:15 RBC 2.55 L (4.30-5.90) m/uL Hgb 7.7 L (13.0-17.5) gm/dL Hct 23.5 L (39.0-53.0) % Chloride (98-107) mmol/L Glucose (74-99) mg/dL POC Glucose (mg/dL) 114 H 105 H (75-99) mg/dL Calcium (8.4-10.2) mg/dL 09/23/19 09/23/19 Range/Units 06:15 06:35 RBC (4.30-5.90) m/uL Hgb (13.0-17.5) gm/dL Hct (39.0-53.0) % Chloride 108 H (98-107) mmol/L Glucose 104 H (74-99) mg/dL POC Glucose (mg/dL) 106 H (75-99) mg/dL Calcium 8.2 L (8.4-10.2) mg/dL - Imaging and Cardiology Chest x-ray: report reviewed, image reviewed Assessment and Plan Assessment: 1. Coronary artery disease, unstable angina, preoperative placement of intra- aortic balloon pump, status post emergent off-pump CABG 1 2. History of hypertension, currently hypotensive on IV Levophed 3. Hyperlipidemia 4. History of pulmonary embolus on no anticoagulation 5. Daily EtOH use 6. Marijuana use 7. Obesity 8. Family history of premature coronary artery disease 9. Postoperative acute blood loss anemia Plan: 1. Continue aspirin, statin, Plavix, beta taco therapy. Will increase beta taco as tolerated. Will add low dose FAUZIA 2. Encourage incentive spirometry 10 times every hour while awake. Bronchodilators per pulmonology 3. Increase activity as tolerated. PT/OT/cardiac rehab consulted 4. Will monitor daily labs and x-rays. Electrolyte replacement per protocol. No transfusion at this point. 5. Insulin management per primary care service 6. Pain control with current medication regimen 7. GI/DVT prophylaxis 8. Will give lasix IV 9. Transfer orders placed for 3S cardiac step down yesterday. May transfer when bed available 10. Discharge planning in progress. Anticipate DC to home with home care later today 11. More recommendations to follow based on patient's progress Time with Patient: Greater than 30
[2019-09-23] MEDS: IPRATROPIUM-ALBUTEROL 3 ML NEB INHALATION SCH ×2 (08:25→12:38)
[2019-09-23] MEDS ORDERED: guaiFENesin-DM 600/30MG 1 EACH TAB.ER.12H PO PRN (08:38)
[2019-09-23] MEDS: MULTIVITAMINS, THERA 1 EACH TAB PO SCH (08:56)
[2019-09-23] MEDS: ASPIRIN 325 MG TAB PO SCH (08:56)
[2019-09-23] MEDS: CLOPIDOGREL 75 MG TAB PO SCH (08:56)
[2019-09-23] MEDS: ATORVASTATIN 40 MG TAB PO SCH (08:56)
[2019-09-23] MEDS: HEPARIN SODIUM,PORCINE 5,000 UNIT/ML 1 ML VIAL SQ SCH (08:57)
--- NOTE | 2019-09-23 08:58 | P.DS ---
Providers Date of admission: 09/19/19 14:45 Expected date of discharge: 09/23/19 Attending physician: Donaldo Lema Consults: 09/19/19 10:04 Consult Physician Stat Consulting Provider: Donaldo Lema Consult Reason/Comments: stat open heart Do you want consulting provider notified?: Yes, Notify in am 09/19/19 10:07 Consult Physician Routine Consulting Provider: Ibrahima Wynn Consult Reason/Comments: Pulmonary and critical care management Do you want consulting provider notified?: Yes Consult to Anesthesia Routine Consulting Provider: Anesthesia,Services Consult Reason/Comments: Cardiac Surgery Pre-Op 09/19/19 16:04 Consult Physician Routine Consulting Provider: Fatuma Morales Consult Reason/Comments: Dr. David whitaker patient Do you want consulting provider notified?: Yes Consult Physician Routine Consulting Provider: Christina Vincent Consult Reason/Comments: Lawn Technician Consult: post cardiac surgery Do you want consulting provider notified?: Yes Primary care physician: Efrain Hernandez Hospital Course: FINAL DIAGNOSIS: 1. Coronary artery disease status post PCI stenting of the diagonal artery with compromised LAD, unstable angina, inability to fix the LAD, preoperative placement of intra-aortic balloon pump, preoperative Effient intake 2. History of hypertension 3. Hyperlipidemia 4. History of pulmonary embolus on no anticoagulation 5. Daily EtOH use 6. Marijuana use 7. Obesity 8. Family history of premature coronary artery disease 9. Postoperative acute blood loss anemia 10. Postoperative hypotension PRINCIPAL PROCEDURE: 1. Left heart catheterization 2. Emergency beating heart single-vessel coronary artery bypass grafting using the left internal mammary artery to the left anterior descending artery 3. Intraoperative transesophageal echocardiogram and epi-aortic scanning 4. Intraoperative graft flow measurements using the Medistim system HISTORY OF PRESENT ILLNESS: This is a 49-year-old gentleman who follows on an outpatient basis with Dr. Efrain Hernandez. Recently the patient had been experiencing chest discomfort, chest tightness without radiation, relieved by rest. He underwent stress testing which was abnormal. He was recommended to undergo heart catheterization which was completed 09/19/2019 demonstrating 80- 90% focal stenosis to the mid left anterior descending coronary artery, 80% radha nosis to the diagonal branch, and 30-40% stenosis to the right coronary artery. A stent was placed to the diagonal coronary artery, but stenting was unsuccessful to the LAD which developed compromised flow. Emergent consultation was placed to Dr. Donaldo Lema from cardiothoracic surgery. He was recommended to undergo emergent coronary artery bypass surgery. The usual perioperative course was discussed in detail with the patient and his significant other, all risks and benefits were explained, all questions were answered, and consent was obtained to proceed with surgery. An intra-aortic balloon pump was placed and the patient was taken emergently to surgery. HOSPITAL COURSE: The patient was taken to the operating room on 09/19/[address] Lema performed emergent off-pump single-vessel CABG. Upon completion of surgery the patient was transferred to the cardiovascular intensive care unit where he was recovered, monitored hemodynamically, and where he progressed to cardiac rehabilitation phase 1. The intra-aortic balloon pump was removed on postop day #1. He was extubated, all lines, tubes, and drips were discontinued when appropriate, and transfer orders were placed for 3 S. cardiac stepdown unit, however there was no bed availability and the patient remained on ICU as a stepdown patient until discharge. His oxygen was titrated down, he continued to work with physical and occupational therapy, he was tolerating oral diet, his pain was controlled, and he was ready to be discharged to home with [facility] on postoperative day #4. He received written and verbal instruction regarding his medications, activity restrictions, signs and symptoms requiring physician notification, and follow-up appointments. COMPLICATIONS: The patient experienced postoperative acute blood loss anemia which was of no consequence and required no transfusion, as well as postoperative hypotension which resolved quickly. Patient Condition at Discharge: Stable Plan - Discharge Summary Discharge Rx Participant: No New Discharge Prescriptions: New Aspirin 325 mg PO DAILY #30 tab Ferrous Sulfate [Iron (65 MG Elemental)] 325 mg PO BID-W/MEALS #30 tab Potassium Chloride ER [K-Dur 20] 20 meq PO DAILY #7 tab Furosemide [Lasix] 40 mg PO DAILY #7 tablet Atorvastatin [Lipitor] 40 mg PO DAILY #30 tab Metoprolol Tartrate [Lopressor] 75 mg PO BID 30 Days tab Guaifenesin/Pseudoephedrne HCl [Mucinex D ER 1,200-120 mg Tab] 1 each PO BID PRN #14 tab.er.12h PRN Reason: Cough Multivitamins, Thera [Multivitamin (formulary)] 1 each PO DAILY tab Clopidogrel [Plavix] 75 mg PO DAILY #30 tab Pantoprazole [Protonix] 40 mg PO AC-BRKFST #30 tablet.dr Chakraborty-Docusate Sodium [Senokot-S] 2 each PO HS PRN tab PRN Reason: Constipation Acetaminophen Tab [Tylenol] 1,000 mg PO Q6HR PRN tab PRN Reason: Fever and/ or Mild Pain Thiamine [Vitamin B-1] 100 mg PO BID-W/MEALS tab Ascorbic Acid [Vitamin C] 500 mg PO BID-W/MEALS #30 tab Lisinopril [Zestril] 5 mg PO DAILY@1200 #30 tab Discontinued Lisinopril [Zestril] 10 mg PO HS Atorvastatin [Lipitor] 20 mg PO HS Aspirin [Children's Aspirin] 81 mg PO DAILY Isosorbide Mononitrate ER [Imdur] 30 mg PO DAILY Discharge Medication List Acetaminophen Tab [Tylenol] 1,000 mg PO Q6HR PRN tab 09/23/19 [Rx] Ascorbic Acid [Vitamin C] 500 mg PO BID-W/MEALS #30 tab 09/23/19 [Rx] Aspirin 325 mg PO DAILY #30 tab 09/23/19 [Rx] Atorvastatin [Lipitor] 40 mg PO DAILY #30 tab 09/23/19 [Rx] Clopidogrel [Plavix] 75 mg PO DAILY #30 tab 09/23/19 [Rx] Ferrous Sulfate [Iron (65 MG Elemental)] 325 mg PO BID-W/MEALS #30 tab 09/23/19 [Rx] Furosemide [Lasix] 40 mg PO DAILY #7 tablet 09/23/19 [Rx] Guaifenesin/Pseudoephedrne HCl [Mucinex D ER 1,200-120 mg Tab] 1 each PO BID PRN #14 tab.er.12h 09/23/19 [Rx] Lisinopril [Zestril] 5 mg PO DAILY@1200 #30 tab 09/23/19 [Rx] Metoprolol Tartrate [Lopressor] 75 mg PO BID 30 Days tab 09/23/19 [Rx] Multivitamins, Thera [Multivitamin (formulary)] 1 each PO DAILY tab 09/23/19 [Rx] Pantoprazole [Protonix] 40 mg PO AC-BRKFST #30 tablet. 09/23/19 [Rx] Potassium Chloride ER [K-Dur 20] 20 meq PO DAILY #7 tab 09/23/19 [Rx] Sennosides-Docusate Sodium [Senokot-S] 2 each PO HS PRN tab 09/23/19 [Rx] Thiamine [Vitamin B-1] 100 mg PO BID-W/MEALS tab 09/23/19 [Rx] Follow up Appointment(s)/Referral(s): Vandana Alonzo NPC [Nurse Practitioner] - 10/01/19 10:15 am (Will see in surg michael's office at [address], [address] Located in [facility] behind the hospital) [facility] ,Cardiac [NON-STAFF] - 4 Weeks (You will receive a phone call in 4 weeks to set up evaluation for cardiac rehab) Donaldo Lema MD [STAFF PHYSICIAN] - 10/17/19 10:15 am [facility], [NON-STAFF] - 1-2 Days Efrain Hernandez MD [Primary Care Provider] - 10/07/19 1:00 pm Damir Cox MD [STAFF PHYSICIAN] - 09/26/19 1:45 pm (ECHO and hospital follow up.) Ibrahima Wynn MD [STAFF PHYSICIAN] - 10/21/19 10:15 am Ambulatory/Diagnostic Orders: Complete Blood Count w/diff [LAB.AMB] Time Frame: 3 Days, Location: None Selected Comprehensive Metabolic Panel [LAB.AMB] Time Frame: 3 Days, Location: None Selected Activity/Diet/Wound Care/Special Instructions: DISCHARGE INSTRUCTIONS: 1. No driving for 4 weeks, or until physician gives their ok. 2. The patient should sleep in their own bed, no medical bed needed. 3. Stairs are not an issue. If the bedroom is upstairs, it is advised that the patient go up at night and down in the morning for the first week. Go slowly, using handrail and take 1 step at a time. 4. MELO hose are to be worn for 30 days or until physician discontinues. 5. Heart hugger is to be worn 100% of the time until physician discontinues.(except when showering) 6. No lifting, pushing, or pulling more than 10 pounds for 12 weeks. The physician will advise of any restriction changes. 7. The patient is expected to continue the prescribed walking program. 8. Continue pain control per as needed orders. 9. Continue with incentive spirometry and splinting/heart hugger until otherwise directed by the physician. 10. Must shower daily using liquid antibacterial soap and a separate white was hcloth for each individual incision. 11. Routine sternal incision care. No powders, lotions, ointments on incisions. No dressings are necessary on incisions unless they are draining. Dermabond tape is to remain on sternal incision until surgeon follow-up. 12. Please call surgeon/WAITER WAITRESS for temp greater than 101 F or purulent drainage from incisions. 13. All prescriptions given by surgeon for 30 days. Refills need to be filled through social work instructor/primary care physician. 14. A Red armband has been placed on the patient. It should be worn for 30 days post surgery and will be removed by the cardiac surgeons. If an ER visit is necessary, please make sure the number on the Red armband is called. 15. You have been referred to and are expected to begin Cardiac Rehab in approximately 4-6 weeks. HOME HEALTH SERVICES TO PROVIDE: RN SKILLED HOME CARE SERVICES FOR POST-OP SURGICAL PATIENTS WITH THE FOLLOWING: Coronary Artery Bypass Surgery (CABG), Mitral Valve Replacement/Repair ( MVR), Aortic Valve Replacement/Repair (AVR) RN TO CONTINUE EDUCATION FROM ``ROAD TO A HEALTH HEART PATIENT EDUCATION MANUAL (GIVEN TO PATIENT IN THE HOSPITAL) MEDICATION RECONCILIATION WITH EDUCATION NEEDED ON FIRST HOME VISIT EMPHASIZE IMPORTANCE OF WEARING BREAST SUPPORT/HEART HUGGER ENCOURAGE USE OF INCENTIVE SPIROMETER 10 X EVERY HOUR WHILE AWAKE ENCOURAGE UTILIZATION OF LOWER EXTREMITY COMPRESSION STOCKINGS/MELO HOSE and ELEVATE LEGS ABOVE LEVEL OF HEART WHILE AT REST. ENCOURAGE AMBULATION 3-5x/day INCREASING TOLERATES, WHILE AVOIDING EXTREMES IN TEMPERATURE FREQUENCY: RN TO OPEN THE PATIENT WITHIN 24 HOURS OF DISCHARGE FROM THE HOSPITAL WITH [place]HE[place] [facility] [place] 2-3 X A WEEK FOR 4 WEEKS ESTABLISHED BY PATIENT NEEDS. LABORATORY: CBC, CMP TO BE DRAWN ON THE THIRD DAY HOME, (RAN STAT) FAX RESULTS TO [phone]. TELEHEALTH PARAMETERS: WEIGHT: NOTIFY MD OF WEIGHT GAIN OF 2 LBS IN 24 HOURS OR 5 LBS IN ONE WEEK HR: NOTIFY MD OF HR <55 BPM OR HR>100 BPM BP: NOTIFY MD IF BP <90/55 OR BP>140/100 O2 SAT: NOTIFY MD IF PO2<93% ON ROOM AIR SEND TELEHEALTH REPORT TO DANCE ENTERTAINER AND CARDIOVASCULAR SURGEON THE FIRST WEEK OF CARE AND THEN BI-WEEKLY. PLEASE ADDITIONALLY COMMUNICATE ANY ABNORMALS AND NEW FINDINGS TO THE SURGEONS OFFICE. For any questions or concerns please call gun perforator Vandana @ or Attila @ Discharge Disposition: HOME WITH HOME HEALTH SERVICES
[2019-09-23] MEDS ORDERED: METOPROLOL TARTRATE 25 MG TAB PO SCH (09:00)
[2019-09-23 09:03] VITALS: TEMP 98.4
[2019-09-23] MEDS ORDERED: LISINOPRIL 5 MG TAB PO SCH (12:00)
[2019-09-23 12:26] VITALS: RESP 22
--- NOTE | 2019-09-23 12:31 | P.PN ---
Subjective Progress Note Date: 09/23/19 Principal diagnosis: Status post CABG, postoperative day #4 This is a 49-year-old male patient, obese, known history of hypertension and hyperlipidemia and previous history of pulmonary embolism maintained on Eliquis on outpatient basis. The patient also is daily alcohol drinker and the patient also smokes marijuana frequently. He has a positive family history for coronary artery disease. The patient had abnormal stress test is cardiac catheterization was done and the patient had a 80-90% focal stenosis to the midportion of his LAD, 80% stenosis of the regular branch and 30-40% stenosis of the RCA. Cardiac catheterization was attempted. A stent was the foot and the diagonal branch and was unsuccessful and the LAD and there was obvious compromise of the flow of the blood and LAD. Based on that, and intra-aortic balloon flow was inserted. The patient was taken for emergent cardiac revascularization surgery. This was done yesterday and the patient underwent a off pump bypass surgery 1 with GARDNER to LAD. Postop, the patient was brought into the intensive care unit. Overnight he was kept on a mechanical ventilator. I did this is a vent changes. I kept h im assist-control mode at the rate of 20 with a tidal volume of 500 and the PEEP was dropped down to 8 this morning with an FiO2 down to 40%. These changes were done based on the blood gases monitoring. Meanwhile, the patient remains hemodynamically stable. This morning. The one-to-one augmentation on his intra-aortic balloon pump. He did well and he remained hemodynamically stable. Earlier this morning his pH was at 7.37 with a pCO2 of 38 and pO2 of 162. The patient had a cardiac output of 5.4 with an index of 2.2. He was on low-dose norepinephrine infusion for blood pressure support. Otherwise he was a Precedex for sedation and he was, comfortable. Chest tubes are all in place. The patient had a mediastinal chest tube to drain around 150 mL over the past 8 hours and 400 mL since surgery without evidence of any air leak. Left pleural chest tube had 100 mL over the past 8 hours and 400 mL since surgery without evidence of any air leak. On today's evaluation of 09/21/2019, the patient is extubated. The patient is postop day #2. Doing extremely well. Sitting up on a chair. No respiratory difficulties. The intra-aortic balloon pump has been removed. He still has a right IJ Bruin-Tate catheter. The patient has a right pleural and left pleural and mediastinal chest tubes. Output from the chest tubes have been noted. The patient has produced 70 mL of serosanguineous drainage from the mediastinal chest tube over the past 8 hours and 350 over the past 24 hours. Output from the left pleural chest tube is around 50 mL over the past 8 hours and on the cc over the past 24 hours. His pulmonary artery pressure is 21/10. Cardiac output is at 10.4 with an index of 4.2. His cardiac rhythm is sinus. Urine output is order of 40 mL an hour. No signs of any delirium tremens. No respiratory distress. The hemoglobin stable at 8.5. The white cell count of 15.9. Reevaluated today on 09/22/19, patient is now postoperative #3. Sitting at a bedside recliner, doing well, relatively asymptomatic. Denies any shortness of breath, denies any significant pain, patient is hemodynamically stable not requiring any inotropes or any pressors. Has been ambulating with assistance in the hallway. Chest x-ray is reassuring. It did show trace pleural effusions and retrocardiac atelectasis, as expected considering his surgery Reevaluated today on 09/23/19, patient is postoperative day #4. Doing extremely well, on room air, asymptomatic, discharge planning is in progress. Chest x-ray is reassuring Objective - Vital Signs Vital signs: Vital Signs Temp 98.4 F 09/23/19 08:00 Pulse 111 H 09/23/19 12:00 Resp 22 09/23/19 12:00 BP 135/89 09/23/19 12:00 Pulse Ox 96 09/23/19 12:00 Intake & Output 09/22/19 09/23/19 09/23/19 18:59 06:59 18:59 Intake Total 115 100 Output Total 970 850 750 Balance -855 -750 -750 Weight 132.6 kg Intake: IV 115 Normal Saline Pressure 15 Bag Sodium Chloride 0.9% 1, 100 000 ml @ 20 mls/hr IV . Q24H ISAIAH Rx#:[id number] Oral 100 Output: Chest Tube Drainage [address] 20 Urine 950 850 750 Other: Voiding Method Urinal Urinal Urinal # Voids 1 ABP, PAP, CO, CI - Last Documented Arterial Blood Pressure 93/79 Pulmonary Artery Pressure 27/7 Cardiac Output 8.3 Cardiac Index 3.4 - Exam Physical Exam: Revealed 49-year-old white male in no distress. Head: Atraumatic, normocephalic. HEENT:[Neck is supple.] [No neck masses.] [No thyromegaly.] [No JVD.] Chest: [Diminished breath sound bilaterally, symmetrical chest expansion, no crackles or rhonchi or wheezes. Cardiac Exam: [Normal S1 and S2, no S3 gallop, no murmur.] Abdomen: [Soft, nontender, no megaly, no rebound, no guarding, normal bowel sounds.] Extremities: [No clubbing, no edema, no cyanosis.] Neurological Exam: [No focal neurologic deficit.] Alert and oriented 3. Psychiatric: Normal mood affect and normal mental status examination. Skin: No rashes. - Labs CBC & Chem 7: 09/23/19 06:15 09/23/19 06:15 Labs: Abnormal Lab Results - Last 24 Hours (Table) 09/22/19 09/23/19 09/23/19 Range/Units 20:26 06:15 06:15 RBC 2.55 L (4.30-5.90) m/uL Hgb 7.7 L (13.0-17.5) gm/dL Hct 23.5 L (39.0-53.0) % Chloride 108 H (98-107) mmol/L Glucose 104 H (74-99) mg/dL POC Glucose (mg/dL) 105 H (75-99) mg/dL Calcium 8.2 L (8.4-10.2) mg/dL 09/23/19 Range/Units 06:35 RBC (4.30-5.90) m/uL Hgb (13.0-17.5) gm/dL Hct (39.0-53.0) % Chloride (98-107) mmol/L Glucose (74-99) mg/dL POC Glucose (mg/dL) 106 H (75-99) mg/dL Calcium (8.4-10.2) mg/dL Assessment and Plan Assessment: Impression: Status post CABG postoperative day #4 off pump, CABG 1 Postoperative atelectasis and pleural effusion, expected. History of hypertension, presently blood pressures under control. History of pulmonary embolism History of alcohol use Family history of premature coronary artery disease. Recommendation: Continue beta blockers Plavix statin and aspirin. Continue incentive spirometry. Continue on room air. Continue bronchodilators. Continue ambulation. Agree with discharge planning today on follow-up on outpatient basis. Time with Patient: Less than 30
[2019-09-23 12:33] VITALS: BP 127/90; PULSE 97
== END 2019-09-23 13:32 | disposition home health service (06) | DRG 232 ==
LOC: CATHCVL 06:07 → 2SICU 14:45
PROVIDERS: ADMIT Surgery; ATTEND Surgery
PROC: B2111ZZ Fluoroscopy of Multiple Coronary Arteries using Low Osmolar Contrast (ICD-10-PCS; 2019-09-19)
PROC: B2131ZZ Fluoroscopy of Multiple Coronary Artery Bypass Grafts using Low Osmolar Contrast (ICD-10-PCS; 2019-09-19)
PROC: 0BH17EZ Insertion of Endotracheal Airway into Trachea, Via Natural or Artificial Opening (ICD-10-PCS; 2019-09-19)
PROC: 5A1935Z Respiratory Ventilation, Less than 24 Consecutive Hours (ICD-10-PCS; 2019-09-19)
PROC: 5A02210 Assistance with Cardiac Output using Balloon Pump, Continuous (ICD-10-PCS; principal; 2019-09-19 10:10)
PROC: 5A1221Z Performance of Cardiac Output, Continuous (ICD-10-PCS; principal; 2019-09-19 10:10)
PROC: 4A033BC Measurement of Arterial Pressure, Coronary, Percutaneous Approach (ICD-10-PCS; principal; 2019-09-19 10:10)
PROC: 02100Z9 Bypass Coronary Artery, One Artery from Left Internal Mammary, Open Approach (ICD-10-PCS; principal; 2019-09-19 10:10)
PROC: B246ZZ4 Ultrasonography of Right and Left Heart, Transesophageal (ICD-10-PCS; principal; 2019-09-19 10:10)
PROC: 4A023N7 Measurement of Cardiac Sampling and Pressure, Left Heart, Percutaneous Approach (ICD-10-PCS; principal; 2019-09-19 10:10)
PROC: 027034Z Dilation of Coronary Artery, One Artery with Drug-eluting Intraluminal Device, Percutaneous Approach (ICD-10-PCS; 2019-09-19 10:10)
DX: I25.110 Atherosclerotic heart disease of native coronary artery with unstable angina pectoris (principal); D62 Acute posthemorrhagic anemia; E11.9 Type 2 diabetes mellitus without complications; E66.9 Obesity, unspecified; Z68.37 Body mass index [BMI] 37.0-37.9, adult; E78.5 Hyperlipidemia, unspecified; F10.10 Alcohol abuse, uncomplicated; I10 Essential (primary) hypertension; Z86.711 Personal history of pulmonary embolism; I95.9 Hypotension, unspecified; Z79.01 Long term (current) use of anticoagulants; Z79.82 Long term (current) use of aspirin; Z79.899 Other long term (current) drug therapy; Z82.49 Family history of ischemic heart disease and other diseases of the circulatory system; Z95.1 Presence of aortocoronary bypass graft
CPT/HCPCS: 71045; 71046; 80048; 80053; 80061; 80074; 81001; 82330; 82805; 83036; 83735; 84443; 85025; 85027; 85520; 85610; 85730; 86850; 86891; 86900; 86901; 86920; 93458; 94002; 94003; 94640

== ENCOUNTER → 2020-03-18 | Day surgery (SDC) | payer OTHER ==
[2020-03-17 09:43] VITALS: BMI 38.0
[~2020-03-18] MED LIST changes: +ALPRAZolam 0.25 MG TAB PO PRN; +ALPRAZolam 0.5 MG TAB PO PRN; +ASPIRIN 325 MG TAB PO STA; +ATORVASTATIN 80 MG TAB PO STA; +IOPAMIDOL-370 125ML BTL INJ ONE; +ISOSORBIDE MONONITRATE ER 30 MG TAB.ER.24H PO SCH; +LIDOCAINE 1% INJ 10MG/ML (20 ML MDV) SQ ONE; +MIDAZOLAM 2 MG/2 ML VIAL IV ONE; +NITROGLYCERIN SL TABS 0.4 MG TAB SUBLINGUAL PRN; +RX INFO: IV CONTRAST WAS GIVEN 1 EACH MISC MISCELLANE PRN; +SODIUM CHLORIDE 0.9% 1,000 ML IV SCH; +SODIUM CHLORIDE 0.9% 1,000 ML in EMPTY BAG 1 BAG IV ONE; -ceFAZolin 1,000 MG in SODIUM CHLORIDE 0.9% IRRIGATIO 1,000 ML IRRIGATION ONE; -ceFAZolin 2,000 MG in SODIUM CHLORIDE 0.9% 30 ML IVPB ONE; -ceFAZolin 3 GM in SODIUM CHLORIDE 0.9% 30 ML IVPB ONE; +fentaNYL (PF) 50 MCG/ML 2 ML AMP IV ONE
[2020-03-18 07:06] VITALS: RESP 18; TEMP 98.1
--- NOTE | 2020-03-18 09:37 | CC ---
CARDIAC CATHETERIZATION REPORT INDICATION: Chest pain with abnormal stress test in a patient with known CAD, status post CABG with GARDNER to LAD in the setting of angioplasty. PROCEDURE NOTE: After obtaining informed consent, left heart catheterization and coronary angiogram were performed via the right femoral artery using standard Laquita catheters. Patient tolerated the procedure well without any obvious immediate complications. Patient received moderate conscious sedation for a total sedation time was 24 minutes. Patient's GARDNER was engaged using a right Laquita catheter. Patient tolerated the procedure well without any obvious immediate complications. A femoral angiogram was performed and Angio-Seal was deployed for hemostasis. FINDINGS: HEMODYNAMICS: Left ventricular end-diastolic pressure is 18 mm. There is no significant gradient across the aortic valve. LEFT VENTRICULOGRAM: Left ventriculogram is not performed #3. ANGIOGRAPHIC DATA LEFT MAIN CORONARY ARTERY: Left main coronary artery is a normal-sized vessel and is free of stenosis. Divides into left anterior descending coronary artery and circumflex coronary artery. Circumflex coronary artery and its branches are free of significant stenosis. LAD shows competitive flow into the GARDNER from the distal LAD. The diagonal branch seems totally occluded. There is a moderate area of disease involving mid LAD. Right coronary artery is a large dominant vessel and is free of significant stenosis. Selective injection of the GARDNER, GARDNER appears patent. Probable anastomotic site is free of disease. I do not see any issues at the distal anastomotic site. The [place] LAD after the anastomosis seemed to show area of narrowing, but that does not seem critical. We may be over estimating gestation because of the competitive flow, injection of the [place] LAD shows that the distal LAD is free of significant disease. CONCLUSION: 1. Totally occluded diagonal branch. 2. Patent GARDNER to the LAD with competitive flow into the distal LAD. PLAN: I had the angiographic data reviewed by Dr. Vincent, the clean in places operator who performed initial angioplasty. He did not think the lesion in the LAD was significant enough to angioplasty at this time. The occluded diagonal branch he felt would be technically challenging to perform intervention on. The plan at this stage is to add nitrates to his current medical regimen and I will send him for a second opinion to [facility]. MMODL / IJN: [id number] /
[2020-03-18 14:44] VITALS: BP 112/64; PULSE 56
== END ==
LOC: CATHCVL 06:23
PROVIDERS: ATTEND Internal Medicine Cardiovascular Disease
DX: I25.110 Atherosclerotic heart disease of native coronary artery with unstable angina pectoris (principal); I25.82 Chronic total occlusion of coronary artery; R07.89 Other chest pain; R94.39 Abnormal result of other cardiovascular function study; R06.02 Shortness of breath; R07.2 Precordial pain; I10 Essential (primary) hypertension; E78.2 Mixed hyperlipidemia; Z95.1 Presence of aortocoronary bypass graft; Z79.82 Long term (current) use of aspirin; Z79.899 Other long term (current) drug therapy; Z79.02 Long term (current) use of antithrombotics/antiplatelets; Z82.49 Family history of ischemic heart disease and other diseases of the circulatory system
CPT/HCPCS: 93459; C1769 ×3; C1760; C1894; J2250; J2001; J3010; Q9967